=== PATIENT | male | born 1965 | race Hispanic/Latino ===

== ENCOUNTER 2018-02-13 11:54 | Inpatient (IN) | payer OTHER ==
[2018-02-13] MEDS ORDERED: MORPHINE IV ONE ×3 (12:22→14:36)
[2018-02-13] MEDS ORDERED: NACL 0.9% 1000 ML 1,000 ML IV ONE (12:24)
--- NOTE | 2018-02-13 12:29 | Emergency Department Report ---
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 He denies hitting his head or any loss of consciousness. He presents with his left leg slightly shortened and rotated. He received 100 g of fentanyl and 4 mg of Zofran in route with EMS. He is a tobacco smoker. He denies any past medical history. He does not have a primary care physician. ED Past Medical Hx - Medications Home Medications: Home Medications Medication Instructions Recorded Confirmed Last Taken Type No Known Home Medications [No 02/13/18 02/13/18 Unknown History Reported Home Medications] ED Review of Systems ROS: Stated complaint: LEFT HIP PAIN Other details as noted in HPI Comment: All other systems reviewed and negative Constitutional: denies: chills, fever Eyes: denies: eye pain, eye discharge, vision change ENT: denies: ear pain, throat pain Respiratory: denies: cough, shortness of breath, wheezing Cardiovascular: denies: chest pain, palpitations Gastrointestinal: denies: abdominal pain, nausea, diarrhea Genitourinary: denies: urgency, dysuria Musculoskeletal: arthralgia. denies: back pain Skin: denies: rash, lesions Neurological: denies: headache, weakness, paresthesias Physical Exam - Physical Exam Physical Exam: GENERAL: The patient is well-developed well-nourished. HENT: Normocephalic. Atraumatic. Patient has moist mucous membranes. EYES: Extraocular motions are intact. Pupils equal reactive to light bilaterally. NECK: Supple. Trachea is midline. CHEST/LUNGS: Clear to auscultation. There is no respiratory distress noted. HEART/CARDIOVASCULAR: Regular. There is no tachycardia. There is no murmur. ABDOMEN: Abdomen is soft, nontender. Patient has normal bowel sounds. There is no abdominal distention. SKIN: Skin is warm and dry. NEURO: The patient is awake, alert, and oriented. The patient is cooperative. The patient has no focal neurologic deficits. The patient has normal speech. MUSCULOSKELETAL: Patient has tenderness palpation to the left hip and upper thigh. The left lower extremity is slightly shortened and externally rotated compared to the right leg. Decreased range of motion of the left lower externally secondary to pain. Pedal pulses are intact. ED Medical Decision Making - Lab Data Result diagrams: 02/13/18 13:06 02/13/18 13:06 - Radiology Data Radiology results: image reviewed interpreted by me: X-ray shows a comminuted left proximal femoral fracture. - Medical Decision Making Patient fell directly on his left side and/or hip and presents with hip pain. He has a comminuted proximal left femoral fracture. Dr. Verdugo consulted for orthopedics who will take the patient to the operating room tomorrow for fixation and the patient will be admitted to the hospitalist service and accepted by Dr. Acuna. - Differential Diagnosis fracture, contusion, sprain, strain Critical Care Time: No Critical care attestation.: If time is entered above; I have spent that time in minutes in the direct care of this critically ill patient, excluding procedure time. ED Disposition Clinical Impression: Hyperglycemia Comminuted fracture of left hip Qualifiers: Encounter type: initial encounter Fracture type: closed Qualified Code(s): S72.092A - Other fracture of head and neck of left femur, initial encounter for closed fracture Hypertension Qualifiers: Hypertension type: essential hypertension Qualified Code(s): I10 - Essential ( primary) hypertension Disposition: 09 OP ADMIT IP TO THIS HOSP Is pt being admited?: Yes Condition: Stable Time of Disposition: 14:32
--- NOTE | 2018-02-13 13:17 | History and Physical Report ---
History of Present Illness Chief complaint: I fell on my left side and hurt myself History of present illness: 53 YO Male with Obesity, Nicotine Dependence presents to ED for evaluation. 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 Pt states that he was unable to stand up and bear weight on his left leg. Pt states that pain is 10/10, worse with movement, and relieved somewhat with non movement. Pt denies head trauma, loss of consciousness, CP, Palpitations, NVD, shortness of breath, BRBPR, . He presents with his left leg slightly shortened and rotated. He received 100 g of fentanyl and 4 mg of Zofran in route with EMS. He is a tobacco smoker. He denies any past medical history. He does not have a primary care physician. Medications and Allergies Allergies Allergy/AdvReac Type Severity Reaction Status Date / Time No Known Allergies Allergy Unverified 02/13/18 12:50 Home Medications Medication Instructions Recorded Confirmed Last Taken Type No Known Home Medications [No 02/13/18 02/13/18 Unknown History Reported Home Medications] Active Meds: Active Medications Sodium Chloride (Nacl 0.9% 1000 Ml) 1,000 mls @ 250 mls/hr IV ONCE ONE Stop: 02/13/18 16:23 Last Admin: 02/13/18 12:51 Dose: 250 mls/hr Review of Systems Constitutional: no weight loss, no weight gain, no fever, no chills Ears, nose, mouth and throat: no ear pain, no ear discharge, no tinnitis, no decreased hearing, no nose pain Cardiovascular: no chest pain, no orthopnea, no palpitations, no rapid/ irregular heart beat, no edema, no syncope, no lightheadedness, no shortness of breath Respiratory: no cough, no cough with sputum, no excessive sputum, no hemoptysis , no shortness of breath, no dyspnea on exertion Gastrointestinal: no abdominal pain, no nausea, no vomiting, no diarrhea, no constipation, no change in bowel habits, no hematemesis Genitourinary Male: no dysuria, no hematuria, no flank pain, no discharge, no urinary frequency, no urinary hesitancy, no nocturia, no incontinence, no erectile dysfunction Rectal: no pain, no incontinence, no bleeding Musculoskeletal: other (left hip pain), no neck stiffness, no neck pain, no shooting arm pain, no arm numbness/tingling, no low back pain Integumentary: no rash, no pruritis, no redness, no sores, no wounds, no jaundice Neurological: no head injury, no transient paralysis, no paralysis, no weakness , no parathesias, no numbness, no tingling Psychiatric: no anxiety, no memory loss, no change in sleep habits, no sleep disturbances, no insomnia, no hypersomnia, no change in appetite Endocrine: no cold intolerance, no heat intolerance, no polyphagia, no excessive thirst, no polydipsia, no polyuria, no nocturia Hematologic/Lymphatic: no easy bruising, no easy bleeding, no lymphadenopathy, no lymphedema Allergic/Immunologic: no urticaria, no allergic rhinitis, no wheezing, no persistent infections, no anaphylaxis, no angioedema Exam - Constitutional Vitals: Temp Pulse Resp BP Pulse Ox 98.2 F 68 12 135/95 100 02/13/18 12:43 02/13/18 12:43 02/13/18 12:51 02/13/18 12:43 02/13/18 12:43 General appearance: Present: mild distress - EENT Eyes: Present: PERRL ENT: hearing intact, clear oral mucosa - Neck Neck: Present: supple, normal ROM - Respiratory Respiratory effort: normal Respiratory: bilateral: CTA - Cardiovascular Heart Sounds: Present: S1 & S2. Absent: rub, click - Extremities Extremities: pulses symmetrical, No edema Extremity abnormal: other (LLE externally rotated, pain with palpation and movement. ) Peripheral Pulses: abnormal (capillary refill greater than 3.6 seconds) - Abdominal General gastrointestinal: Present: soft, non-tender, non-distended, normal bowel sounds Male genitourinary: Present: normal - Rectal Rectal Exam: normal exam-external/orifice - Integumentary Integumentary: Present: clear, warm, dry - Musculoskeletal Musculoskeletal: gait normal, strength equal bilaterally - Psychiatric Psychiatric: appropriate mood/affect, intact judgment & insight - Neurologic Neurologic: CNII-XII intact, moves all extremities Results - Labs CBC & Chem 7: 02/13/18 13:06 02/13/18 13:06 Assessment and Plan - Patient Problems (1) Sepsis Current Visit: Yes Status: Acute Qualifiers: Sepsis type: sepsis due to unspecified organism Qualified Code(s): A41.9 - Sepsis, unspecified organism Plan to address problem: Iv antibiotics, blood cultures, chest x ray, urinalysis, monitor uop q shift, serial lactic acid, CBC, BMP,urinalysis, chest x ray, CT angio chest (2) Hypertensive urgency, malignant Current Visit: Yes Status: Acute Plan to address problem: monitor bp q shift, IV hydralazine prn for systolic above 160 (3) Nicotine dependence Current Visit: Yes Status: Acute Qualifiers: Substance use status: in withdrawal Plan to address problem: smoking cessation counseling, Pt refused to pick quit date. (4) Comminuted fracture of left hip Current Visit: Yes Status: Acute Qualifiers: Encounter type: initial encounter Fracture type: closed Qualified Code(s) : S72.092A - Other fracture of head and neck of left femur, initial encounter for closed fracture Plan to address problem: Ortho consulted, pending surgical intervention in AM, pain control, (5) DVT prophylaxis Current Visit: Yes Status: Acute
[2018-02-13] MEDS ORDERED: ZOFRAN IV PRN (13:18)
[2018-02-13] MEDS ORDERED: SODIUM CHLORIDE FLUSH SYRINGE 10 ML IV PRN (13:18)
[2018-02-13] MEDS ORDERED: TYLENOL PO PRN (13:18)
--- NOTE | 2018-02-13 13:26 | XRay Report ---
LEFT HIP, 2 views: History: Pain, fall. A comminuted intertrochanteric fracture is identified in the proximal left femur. The left femoral head remains well-seated within the left acetabulum. No obvious pelvic fracture. IMPRESSION: Comminuted intertrochanteric fracture of the proximal left femur.
[2018-02-13 13:32] LABS: Hematocrit 46.7 % (35.5-45.6); Hemoglobin 15.6 gm/dl (11.8-15.2); Mean Corpuscular HGB Conc 34 % (32-34); Mean Corpuscular Hemoglobin 30 pg (28-32); Mean Corpuscular Volume 90 fl (84-94); Platelet Count 249 K/mm3 (140-440); Red Blood Count 5.21 M/mm3 (3.65-5.03); Red Cell Distribution Width 13.3 % (13.2-15.2)
[2018-02-13 13:38] LABS: BUN/Creatinine Ratio 15; Blood Urea Nitrogen 12 mg/dL (9-20); Calcium 8.5 mg/dL (8.4-10.2); Hemolysis Index 41
[2018-02-13 13:41] LABS: INR 0.87 (0.87-1.13); Partial Thromboplastin Time 25.7 Sec. (24.2-36.6)
[2018-02-13] MEDS ORDERED: MORPHINE IV NR (14:39)
[2018-02-13 14:54] LABS: Anisocytosis 1+; Basophils % (Manual) 0 % (0.0-1.8); Eosinophils % (Manual) 1.5 % (0.0-4.3); Monocytes % (Manual) 3.5 % (0.0-7.3); Platelet Estimate Consistent w Auto; Total Cells Counted 200
[2018-02-13] MEDS ORDERED: NACL 0.9% 1000 ML IV ONE (16:48)
[2018-02-13] MEDS ORDERED: APRESOLINE IV PRN (16:52)
[2018-02-13] MEDS ORDERED: MORPHINE IV PRN ×2 (19:06→19:17)
[2018-02-13] MEDS: ZOSYN/NS 4.5GM/100ML 4.5 GM/100 ML VIAL IV SCH (19:11)
--- NOTE | 2018-02-13 19:15 | XRay Report ---
FINAL REPORT EXAM: XR CHEST 1V AP HISTORY: dypsnea TECHNIQUE: upright single view chest PRIORS: None. FINDINGS: Cardiac and mediastinal contours are unremarkable. No focal pulmonary infiltrate is identified. No pleural fluid collection seen. Pulmonary vasculature is unremarkable. IMPRESSION: Negative single-view chest
[2018-02-13] MEDS ORDERED: AMBIEN PO PRN (21:21)
[2018-02-13] MEDS: HABITROL TD SCH (22:56)
[2018-02-14] MEDS: MORPHINE IV PRN ×4 (00:31→21:43)
[2018-02-14] MEDS: PERCOCET 5/325 PO PRN (02:21)
[2018-02-14] MEDS: ZOSYN/NS 4.5GM/100ML 4.5 GM/100 ML VIAL IV SCH ×4 (02:24→21:42)
--- NOTE | 2018-02-14 03:01 | Cat Scan Report ---
FINAL REPORT EXAM: CT ANGIO CHEST HISTORY: Dyspnea. TECHNIQUE: CT angiogram of the chest was performed, with axial images obtained after the intravenous administration of contrast. Sagittal, coronal, and spiral CT-MIP reformatted images were also obtained. No prior studies are available for comparison. FINDINGS: The heart is mildly enlarged. The thoracic aorta is normal in caliber, without aneurysm or dissection. There is small intraluminal filling defect seen within pulmonary arterial branch extending to the posterior left lower lobe (series 3, images 58-60), in keeping with nonocclusive pulmonary embolus. There is probable additional tiny nonocclusive clot in the right lower lobe pulmonary arterial branch (images 60-61). There is no mediastinal or hilar lymphadenopathy. Examination of the lung parenchyma demonstrates multiple foci of moderate linear scarring or atelectasis in both posterior lower lobes. There is additional mild linear scarring or atelectasis in the anterior-upper aspect of the right middle lobe and also at the anterior right lung apex. There is no pleural or pericardial effusion. The trachea and visualized proximal airways are patent. There is diffuse fatty infiltration of the liver. There is an exophytic 2.1 cm cyst at the anterior left renal upper pole. There is mild diffuse thickening of the left adrenal gland, with a 1.2 cm nodule seen anteriorly. There are moderate spondylotic and degenerative changes seen throughout the spine. There is a mild thoracic levoscoliosis. These findings were discussed with Nurse Sandeep Estrada at time of interpretation 2:55 a.m. EST 02/14/2018. IMPRESSION: 1. Small nonocclusive pulmonary emboli seen within pulmonary arterial branches in the left lower lobe and right lower lobe. 2. Scattered foci of linear scarring or atelectasis within both lungs. 3. Diffuse thickening of left adrenal gland, with nonspecific 1.2 cm nodule seen anteriorly, not fully characterized. 4. Diffuse fatty infiltration of the liver.
[2018-02-14] MEDS ORDERED: LOVENOX SUB-Q ONE (03:03)
[2018-02-14] MEDS: SODIUM CHLORIDE FLUSH SYRINGE 10 ML IV SCH ×3 (03:08→22:15)
[2018-02-14 06:34] LABS: Bilirubin,Urine NEG (Negative); Blood,Urine NEG (Negative); Color,Urine Yellow (Yellow); Protein,Urine <15 mg/dL mg/dL (Negative); Urobilinogen,Urine < 2.0 mg/dL (<2.0); WBC,Urine < 1.0 /HPF (0.0-6.0)
[2018-02-14] MEDS ORDERED: NACL 0.9% 1000 ML 1,000 ML ONE (08:51)
[2018-02-14] MEDS ORDERED: ATROVENT IH ONE ×2 (08:53→09:30)
--- NOTE | 2018-02-14 08:57 | Anesthesia Consultation ---
Anesthesia Consult and Med Hx Date of service: 02/14/18 - Airway Anesthetic Teeth Evaluation: Edentulous ROM Head & Neck: Adequate Mental/Hyoid Distance: Inadequate Mallampati Class: Class III Intubation Access Assessment: Possibly Difficult - Pulmonary Exam CTA: Yes - Cardiac Exam Cardiac Exam: RRR - Pre-Operative Health Status ASA Pre-Surgery Classification: ASA3 Proposed Anesthetic Plan: General - Pulmonary Hx Smoking: Yes Hx Asthma: No SOB: Yes (small PE on CT scan) COPD: No Hx Pneumonia: No Hx Sleep Apnea: Yes (high risk. denies) - Cardiovascular System Hx Hypertension: Yes (denies but hypertensive on admission) Hx Heart Attack/AMI: No Hx Pacemaker: No Hx Internal Defibrillator: No - Central Nervous System Hx Seizures: No - Endocrine Hx Renal Disease: No Hx Liver Disease: No Hx Non-Insulin Dependent Diabetes: Yes (denies but hyperglycemic on admission) - Hematic Hx Sickle Cell Disease: No - Other Systems Hx Obesity: Yes - Additional Comments Anesthesia Medical History Comments: small non obstructive PE on CT scan
--- NOTE | 2018-02-14 08:57 | Anesthesia Day of Surgery ---
Anesthesia Day of Surgery - Day of Surgery Patient Examined: Yes Patient H&P Reviewed: Yes Patient is NPO: Yes
[2018-02-14] MEDS ORDERED: APRESOLINE IV PRN (09:14)
--- NOTE | 2018-02-14 09:22 | Event Note ---
Date: 02/14/[address] Tyson. 53 year old male with left hip comminuted fracture with pulmonary emboli in the lower lobe pulmonary arteries with request for IVC filter. I'll order a KUB to ensure there is no IVC filter in place. If no IVC filter, then I will add the patient on today for IVC filter. Plan will be for IVC filter removal within 3 months. Recommend bilateral lower extremity DVT studies to evaluate source. Suspect left lower extremity. Recommend anticoagulation for 3 months once risks of bleeding have decreased.
[2018-02-14] MEDS: PROVENTIL IH PRN (09:27)
[2018-02-14] MEDS ORDERED: HEPARIN/NS 5000 UNIT/500ML(CATH LAB) 1,000 ML IR ONE (14:25)
[2018-02-14] MEDS ORDERED: NACL 0.9% 500 ML 500 ML ONE (14:26)
[2018-02-14] MEDS ORDERED: ANCEF/STERILE WATER 2 GM/20 ML 0 GM/0 ML SYRINGE IV ONE (14:29)
[2018-02-14] MEDS ORDERED: XYLOCAINE 1% 20 mL ONE (14:29)
[2018-02-14] MEDS: SUBLIMAZE ONE ×3 (14:33→15:13)
--- NOTE | 2018-02-14 14:36 | Consultation ---
History of Present Illness - HPI Consult date: 02/14/18 Consult reason: fracture History of present illness: 53 YO Male with Obesity, Nicotine Dependence presents to ED for evaluation. 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 Pt states that he was unable to stand up and bear weight on his left leg. Pt states that pain is 10/10, worse with movement, and relieved somewhat with non movement. Pt denies head trauma, loss of consciousness Seen in the ED where xrays taken revealed a displaced left intertrochanteric fracture hip, admitted and orthopedics consulted.... Medications and Allergies Allergies Allergy/AdvReac Type Severity Reaction Status Date / Time No Known Allergies Allergy Unverified 02/13/18 12:50 Home Medications Medication Instructions Recorded Confirmed Last Taken Type No Known Home Medications [No 02/13/18 02/13/18 Unknown History Reported Home Medications] Active Meds: Active Medications Acetaminophen (Tylenol) 650 mg PO Q4H PRN PRN Reason: Pain MILD(1-3)/Fever >100.5/POMPA Albuterol (Proventil) 2.5 mg IH Q4HRT PRN PRN Reason: Shortness Of Breath Last Admin: 02/14/18 09:27 Dose: 2.5 mg Albuterol (Proventil) 2.5 mg IH TIDRT [facility] Folic Acid (Folvite) 1 mg PO QDAY [facility] Hydralazine HCl (Apresoline) 10 mg IV Q4HR PRN PRN Reason: Hypertension Piperacillin Sod/Tazobactam Sod (Zosyn/Ns 4.5gm/100ml) 4.5 gm in 100 mls @ 200 mls/hr IV Q8HR [facility]; Protocol Last Admin: 02/14/18 05:21 Dose: 200 mls/hr Morphine Sulfate (Morphine) 2 mg IV Q6H PRN PRN Reason: Pain , Severe (7-10) Last Admin: 02/14/18 12:29 Dose: 2 mg Multivitamins (Theragran Tab) 1 each PO QDAY [facility] Nicotine (Habitrol) 7 mg TD QDAY@2200 DESHAWN Last Admin: 02/13/18 22:56 Dose: 7 mg Ondansetron HCl (Zofran) 4 mg IV Q8H PRN PRN Reason: Nausea And Vomiting Oxycodone/Acetaminophen (Percocet 5/325) 1 tab PO Q6H PRN PRN Reason: Pain, Moderate (4-6) Last Admin: 02/14/18 02:21 Dose: 1 tab Sodium Chloride (Sodium Chloride Flush Syringe 10 Ml) 10 ml IV BID DESHAWN Last Admin: 02/14/18 12:31 Dose: 10 ml Sodium Chloride (Sodium Chloride Flush Syringe 10 Ml) 10 ml IV PRN PRN PRN Reason: LINE FLUSH Thiamine HCl (Vitamin B-1) 100 mg PO QDAY [facility] Zolpidem Tartrate (Ambien) 10 mg PO QHS PRN PRN Reason: Insomnia Last Admin: 02/13/18 22:56 Dose: 10 mg Physical Examination - Physical exam Narrative exam: Left LE - moderate swelling left proximal thigh, tender with passive ROM, shortened externallly rotated, compartments soft, good capillary refill Assessment and Plan Displaced left intertrochanteric hip fracture Recommend IM nailing left hip....
--- NOTE | 2018-02-14 14:43 | XRay Report ---
AP ABDOMEN: HISTORY: Evaluate for IVC filter, pulmonary emboli. Slightly limited exam with poor penetration secondary to body habitus. No IVC filter is detected on x-ray. The abdominal gas pattern is unremarkable. No masses or organomegaly is identified and there is no gross evidence of free air or fluid. No significant soft tissue calcifications are noted. IMPRESSION: Unremarkable abdomen. No IVC filter is identified on x-ray.
[2018-02-14] MEDS ORDERED: XYLOCAINE 2% INFILTRATI ONE (14:48)
[2018-02-14] MEDS: PROVENTIL IH SCH ×2 (14:53→20:58)
[2018-02-14] MEDS: VERSED IV ONE ×2 (14:57→15:13)
--- NOTE | 2018-02-14 15:56 | Operative Report ---
Operative Report Operative Report: EXAM: Ultrasound guided access of the right common femoral vein IVC filter placement and inferior venacava venography DATE: 02/14/18 INDICATION: 53-year-old male with comminuted left lower extremity fracture found to have pulmonary embolism with request for IVC filter. MEDICATIONS: Continuous cardiopulmonary monitoring was performed during this procedure. Please review the nursing record for a list of all medications. DEVICES: Retrievable Bard Montgomery IVC filter. [employer]: WALT GUDINO MD CONTRAST: 40 mL of nonionic contrast PROCEDURE: The risks, benefits, and alternatives were discussed; written informed consent was obtained. The patient was transported to the angiography suite in stable condition. The patient was transported on the table and the right common femoral vein was assessed with ultrasound to ensure patency. The patient was prepped and draped in a sterile fashion. The right common femoral vein was accessed with an 21-gauge needle under direct ultrasound guidance. 0.018 inch wire was advanced through the needle and the needle was exchanged for a transitional dilation. Inner dilator and wire was removed. 0.035 inch wire was passed into the inferior vena cava. The transitional dilator was exchanged for a 5 Dominican sheath and a 5 Dominican pigtail catheter was advanced over the wire and passed into the inferior vena cava. The table was locked. Digital subtraction venography was performed. The pigtail was removed over a 0.035 inch wire and the sheath was removed over the wire. The IVC filter sheath and introducer were advanced over the wire under direct fluoroscopic guidance. The wire and introducer were removed. The IVC filter deployment system was advanced through the sheath and properly positioned under fluoroscopic guidance. The IVC filter was deployed under direct fluoroscopic guidance. Venography was performed through the sheath to confirm position. The deployment system, and sheath were removed. Pressure was held until hemostasis was achieved. The patient was transferred from the angiography suite in stable condition. FINDINGS: 1. Under direct ultrasound guidance, the right right common femoral vein was accessed with a 21-gauge needle. The right common femoral vein is patent. 2. Digital subtraction venography of the inferior vena cava demonstrates no evidence of inferior vena cava thrombus. The inferior vena cava is normal in size. Renal vein inflow is visualized. The inferior vena cava is adequate to accommodate an IVC filter. 3. Bard Montgomery IVC filter is properly positioned, below the renal veins and above the iliocaval confluence. IMPRESSION: Successful placement of a retrievable Bard Corrie IVC filter. No evidence of caval thrombus.
--- NOTE | 2018-02-14 17:55 | Progress Note ---
Assessment and Plan Assessment and plan: 53 YO Male with Obesity, Nicotine Dependence presents to ED for evaluation. 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 Pt states that he was unable to stand up and bear weight on his left leg. Pt states that pain is 10/10, worse with movement, and relieved somewhat with non movement. Pt denies head trauma, loss of consciousness, CP, Palpitations, NVD, shortness of breath, BRBPR, . He presents with his left leg slightly shortened and rotated. He received 100 g of fentanyl and 4 mg of Zofran in route with EMS. He is a tobacco smoker. He denies any past medical history. He does not have a primary care physician. (1) SIRS, no clear evidence of sepsis Current Visit: Yes Status: Acute Qualifiers: Sepsis type: sepsis due to unspecified organism Qualified Code(s): A41.9 - Sepsis, unspecified organism Plan to address problem: Iv antibiotics, blood cultures, chest x ray, urinalysis, monitor uop q shift, serial lactic acid, CBC, BMP,urinalysis, chest x ray, CT angio chest (2) Pulmonary Embolisim Hold anticoagulation due to planned surgery Will pLACE ICD VASULAR CONSULT (3) Hypertensive urgency, malignant Current Visit: Yes Status: Acute Plan to address problem: monitor bp q shift, IV hydralazine prn for systolic above 160 (4) Nicotine dependence Current Visit: Yes Status: Acute Qualifiers: Substance use status: in withdrawal Plan to address problem: smoking cessation counseling, Pt refused to pick quit date. (5) Comminuted fracture of left hip Current Visit: Yes Status: Acute Qualifiers: Encounter type: initial encounter Fracture type: closed Qualified Code(s) : S72.092A - Other fracture of head and neck of left femur, initial encounter for closed fracture Plan to address problem: Ortho consulted, pending surgical intervention in AM, pain control, (6) DVT prophylaxis Current Visit: Yes Status: Acute History Interval history: Patient seen and examined in no acute distress. He just returned from IVC filter placement after discussion with Anesthesia, vascular, and reviewing patients risk agreed that IVC filter will be ideal before surgery. Patient and family were ok. Hospitalist Physical - Physical exam Narrative exam: General appearance: Present: mild distress - EENT Eyes: Present: PERRL ENT: hearing intact, clear oral mucosa - Neck Neck: Present: supple, normal ROM - Respiratory Respiratory effort: normal Respiratory: bilateral: CTA - Cardiovascular Heart Sounds: Present: S1 & S2. Absent: rub, click - Extremities Extremities: pulses symmetrical, No edema Extremity abnormal: other (LLE externally rotated, pain with palpation and movement. ) Peripheral Pulses: abnormal (capillary refill greater than 3.6 seconds) - Abdominal General gastrointestinal: Present: soft, non-tender, non-distended, normal bowel sounds Male genitourinary: Present: normal - Rectal Rectal Exam: normal exam-external/orifice - Integumentary Integumentary: Present: clear, warm, dry - Musculoskeletal Musculoskeletal: gait normal, strength equal bilaterally - Psychiatric Psychiatric: appropriate mood/affect, intact judgment & insight - Neurologic Neurologic: CNII-XII intact, moves all extremities - Constitutional Vitals: Temp Pulse Resp BP Pulse Ox 97.4 F L 103 H 17 159/93 91 02/14/18 13:56 02/14/18 13:56 02/14/18 13:56 02/14/18 13:56 02/14/18 13:56 General appearance: Present: mild distress Results - Labs CBC & Chem 7: 02/13/18 13:06 02/13/18 13:06 Labs: Laboratory Last Values WBC 21.4 K/mm3 (4.5-11.0) H 02/13/18 13:06 RBC 5.21 M/mm3 (3.65-5.03) H 02/13/18 13:06 Hgb 15.6 gm/dl (11.8-15.2) H 02/13/18 13:06 Hct 46.7 % (35.5-45.6) H 02/13/18 13:06 MCV 90 fl (84-94) 02/13/18 13:06 MCH 30 pg (28-32) 02/13/18 13:06 MCHC 34 % (32-34) 02/13/18 13:06 RDW 13.3 % (13.2-15.2) 02/13/18 13:06 Plt Count 249 K/mm3 (140-440) 02/13/18 13:06 Add Manual Diff Complete 02/13/18 13:06 Total Counted 200 02/13/18 13:06 Seg Neuts % (Manual) 90.0 % (40.0-70.0) H 02/13/18 13:06 Band Neutrophils % 0 % 02/13/18 13:06 Lymphocytes % (Manual) 5.0 % (13.4-35.0) L 02/13/18 13:06 Reactive Lymphs % (Man) 0 % 02/13/18 13:06 Monocytes % (Manual) 3.5 % (0.0-7.3) 02/13/18 13:06 Eosinophils % (Manual) 1.5 % (0.0-4.3) 02/13/18 13:06 Basophils % (Manual) 0 % (0.0-1.8) 02/13/18 13:06 Metamyelocytes % 0 % 02/13/18 13:06 Myelocytes % 0 % 02/13/18 13:06 Promyelocytes % 0 % 02/13/18 13:06 Blast Cells % 0 % 02/13/18 13:06 Nucleated RBC % Not Reportable 02/13/18 13:06 Seg Neutrophils # Man 19.3 K/mm3 (1.8-7.7) H 02/13/18 13:06 Band Neutrophils # 0.0 K/mm3 02/13/18 13:06 Lymphocytes # (Manual) 1.1 K/mm3 (1.2-5.4) L 02/13/18 13:06 Abs React Lymphs (Man) 0.0 K/mm3 02/13/18 13:06 Monocytes # (Manual) 0.7 K/mm3 (0.0-0.8) 02/13/18 13:06 Eosinophils # (Manual) 0.3 K/mm3 (0.0-0.4) 02/13/18 13:06 Basophils # (Manual) 0.0 K/mm3 (0.0-0.1) 02/13/18 13:06 Metamyelocytes # 0.0 K/mm3 02/13/18 13:06 Myelocytes # 0.0 K/mm3 02/13/18 13:06 Promyelocytes # 0.0 K/mm3 02/13/18 13:06 Blast Cells # 0.0 K/mm3 02/13/18 13:06 WBC Morphology Not Reportable 02/13/18 13:06 Hypersegmented Neuts Not Reportable 02/13/18 13:06 Hyposegmented Neuts Not Reportable 02/13/18 13:06 Hypogranular Neuts Not Reportable 02/13/18 13:06 Smudge Cells Not Reportable 02/13/18 13:06 Toxic Granulation Not Reportable 02/13/18 13:06 Toxic Vacuolation Not Reportable 02/13/18 13:06 Dohle Bodies Not Reportable 02/13/18 13:06 Pelger-Huet Anomaly Not Reportable 02/13/18 13:06 Sophia Rods Not Reportable 02/13/18 13:06 Platelet Estimate Consistent w auto 02/13/18 13:06 Clumped Platelets Not Reportable 02/13/18 13:06 Plt Clumps, EDTA Not Reportable 02/13/18 13:06 Large Platelets Not Reportable 02/13/18 13:06 Giant Platelets Not Reportable 02/13/18 13:06 Platelet Satelliting Not Reportable 02/13/18 13:06 Plt Morphology Comment Not Reportable 02/13/18 13:06 RBC Morphology Not Reportable 02/13/18 13:06 Dimorphic RBCs Not Reportable 02/13/18 13:06 Polychromasia Not Reportable 02/13/18 13:06 Hypochromasia Not Reportable 02/13/18 13:06 Poikilocytosis Not Reportable 02/13/18 13:06 Anisocytosis 1+ 02/13/18 13:06 Microcytosis Not Reportable 02/13/18 13:06 Macrocytosis Not Reportable 02/13/18 13:06 Spherocytes Not Reportable 02/13/18 13:06 Pappenheimer Bodies Not Reportable 02/13/18 13:06 Sickle Cells Not Reportable 02/13/18 13:06 Target Cells Not Reportable 02/13/18 13:06 Tear Drop Cells Not Reportable 02/13/18 13:06 Ovalocytes Not Reportable 02/13/18 13:06 Helmet Cells Not Reportable 02/13/18 13:06 [place] Bodies Not Reportable 02/13/18 13:06 [place] Rings Not Reportable 02/13/18 13:06 [place] Cells Not Reportable 02/13/18 13:06 Bite Cells Not Reportable 02/13/18 13:06 Crenated Cell Not Reportable 02/13/18 13:06 Elliptocytes Not Reportable 02/13/18 13:06 Acanthocytes (Spur) Not Reportable 02/13/18 13:06 Rouleaux Not Reportable 02/13/18 13:06 Hemoglobin C Crystals Not Reportable 02/13/18 13:06 Schistocytes Not Reportable 02/13/18 13:06 Malaria parasites Not Reportable 02/13/18 13:06 Ernst Bodies Not Reportable 02/13/18 13:06 Hem Pathologist Commnt No 02/13/18 13:06 PT 12.2 Sec. (12.2-14.9) 02/13/18 13:06 INR 0.87 (0.87-1.13) 02/13/18 13:06 APTT 25.7 Sec. (24.2-36.6) 02/13/18 13:06 Sodium 132 mmol/L (137-145) L 02/13/18 13:06 Potassium 4.6 mmol/L (3.6-5.0) 02/13/18 13:06 Chloride 92.9 mmol/L (98-107) L 02/13/18 13:06 Carbon Dioxide 26 mmol/L (22-30) 02/13/18 13:06 Anion Gap 18 mmol/L 02/13/18 13:06 BUN 12 mg/dL (9-20) 02/13/18 13:06 Creatinine 0.8 mg/dL (0.8-1.5) 02/13/18 13:06 Estimated GFR > 60 ml/min 02/13/18 13:06 BUN/Creatinine Ratio 15 % 02/13/18 13:06 Glucose 319 mg/dL (75-100) H 02/13/18 13:06 POC Glucose 215 (70-105) H 02/14/18 13:52 Lactic Acid 1.20 mmol/L (0.7-2.0) 02/13/18 22:53 Calcium 8.5 mg/dL (8.4-10.2) 02/13/18 13:06 Urine Color Yellow (Yellow) 02/14/18 05:45 Urine Turbidity Clear (Clear) 02/14/18 05:45 Urine pH 5.0 (5.0-7.0) 02/14/18 05:45 Ur Specific [place] > 1.035 (1.003-1.030) H 02/14/18 05:45 Urine Protein <15 mg/dl mg/dL (Negative) 02/14/18 05:45 Urine Glucose (UA) >=500 mg/dL (Negative) 02/14/18 05:45 Urine Ketones Tr mg/dL (Negative) 02/14/18 05:45 Urine Blood Neg (Negative) 02/14/18 05:45 Urine Nitrite Neg (Negative) 02/14/18 05:45 Urine Bilirubin Neg (Negative) 02/14/18 05:45 Urine Urobilinogen < 2.0 mg/dL (<2.0) 02/14/18 05:45 Ur Leukocyte Esterase Neg (Negative) 02/14/18 05:45 Urine WBC (Auto) < 1.0 /HPF (0.0-6.0) 02/14/18 05:45 Urine RBC (Auto) 2.0 /HPF (0.0-6.0) 02/14/18 05:45 - Imaging and Cardiology CT scan - chest: image reviewed (pulmonary embolisim)
[2018-02-14] MEDS: HABITROL TD SCH (21:43)
[2018-02-15] MEDS: MORPHINE IV PRN (05:31)
[2018-02-15] MEDS: ZOSYN/NS 4.5GM/100ML 4.5 GM/100 ML VIAL IV SCH ×5 (05:31→23:12)
[2018-02-15] MEDS: PROVENTIL IH SCH ×2 (07:45→14:00)
[2018-02-15] MEDS: PERCOCET 5/325 PO PRN ×2 (09:11→23:09)
[2018-02-15] MEDS ORDERED: ZOFRAN IV PRN (10:19)
[2018-02-15] MEDS ORDERED: VERSED IV NR (11:00)
[2018-02-15] MEDS ORDERED: NACL 0.9% 1000 ML 1,000 ML IV SCH (11:00)
[2018-02-15] MEDS ORDERED: NEURONTIN PO NR (11:00)
[2018-02-15] MEDS: NACL 0.9% 1000 ML 1,000 ML IV SCH (11:50)
[2018-02-15] MEDS: FOLVITE PO SCH (12:10)
[2018-02-15] MEDS: SODIUM CHLORIDE FLUSH SYRINGE 10 ML IV SCH ×2 (12:11→23:00)
[2018-02-15] MEDS: VITAMIN B-1 PO SCH (12:11)
[2018-02-15] MEDS: THERAGRAN Tab PO SCH (12:11)
[2018-02-15] MEDS ORDERED: TORADOL IM ONE (12:14)
[2018-02-15] MEDS ORDERED: NACL 0.9% IR ONE (12:14)
[2018-02-15] MEDS ORDERED: MORPHINE IM ONE (12:14)
[2018-02-15] MEDS ORDERED: MARCAINE 0.5% INFILTRATI ONE (12:14)
[2018-02-15] MEDS ORDERED: DIPRIVAN 10 MG/ML IV ONE (12:18)
[2018-02-15] MEDS ORDERED: SUBLIMAZE ONE (12:20)
[2018-02-15] MEDS ORDERED: QUELICIN ONE (12:27)
[2018-02-15] MEDS ORDERED: NEO SYNEPHRINE/NS Syringe(OR USE) IV ONE (12:30)
[2018-02-15] MEDS ORDERED: XYLOCAINE MPF 2% ONE (12:32)
[2018-02-15] MEDS ORDERED: ZEMURON IV ONE (12:32)
[2018-02-15] MEDS ORDERED: TORADOL ONE (13:18)
[2018-02-15] MEDS ORDERED: MARCAINE 0.5% 30 ML INFILTRATI ONE (13:18)
[2018-02-15] MEDS ORDERED: MORPHINE ONE (13:18)
--- NOTE | 2018-02-15 14:51 | Procedure Note ---
Date of procedure: 02/15/18 Pre-op diagnosis: displaced left intertrochanteric hip fracture Post-op diagnosis: same Procedure: Close reduction insertion of intramedullary nail left femur Procedure The patient was brought to your place in the OR table in supine position following induction and intubation by anesthesia patient was placed onto the [place] fracture table care was taken to protect the bony areas the left lower extremity was placed a longitudinal traction next C-arm fluoroscopy was brought in the fracture was reduced in both the AP and lateral views next the left hip and thigh were prepped and draped in the usual sterile manner. A timeout procedure was done to identify the patient and the correct operative site. An incision was made superior and posterior to the greater trochanter lives are taken down sharply through skin and subcutaneous a Mosher elevator was used to split the soft tissues next using a digital palpation the greater tuberosity was palpated next a large all shoes to create an entry portal into the proximal femur following this and inferior C-arm fluoroscopy the titrated ball tipped guide was inserted down the proximal femur across the fracture site into the distal femoral condyle the length and diameters were measured A 10 x 480 mm IM andrea was selected following reaming the intramedullary nail was inserted using antegrade technique this is followed by proximal locking using a spiral blade which measured 110 mm in length this was followed by distal locking using a 50 mm 4.5 screw AP and lateral views were obtained showing good reduction of the fracture and placement of hardware next the wound copiously irrigated and were closed in a standard routine fashion. He tolerated the procedure there were no complications and he was sent to postanesthesia recovery Surgeon: DANTE FRAZIER Estimated blood loss: other (300 mL) Pathology: none Condition: stable Disposition: PACU
[2018-02-15] MEDS ORDERED: SODIUM CHLORIDE FLUSH SYRINGE 10 ML IV SCH (15:00)
[2018-02-15] MEDS ORDERED: ANCEF/NS 1 GM/50 ML 1 GM/50 ML BAG IV SCH (15:00)
[2018-02-15] MEDS: DILAUDID IV PRN ×2 (15:22→15:30)
[2018-02-15] MEDS: PROVENTIL IH PRN (16:40)
[2018-02-15] MEDS ORDERED: PROVENTIL IH SCH (17:00)
--- NOTE | 2018-02-15 17:43 | Progress Note ---
Assessment and Plan Assessment and plan: 53 YO Male with Obesity, Nicotine Dependence presents to ED for evaluation. 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 Pt states that he was unable to stand up and bear weight on his left leg. Pt states that pain is 10/10, worse with movement, and relieved somewhat with non movement. Pt denies head trauma, loss of consciousness, CP, Palpitations, NVD, shortness of breath, BRBPR, . He presents with his left leg slightly shortened and rotated. He received 100 g of fentanyl and 4 mg of Zofran in route with EMS. He is a tobacco smoker. He denies any past medical history. He does not have a primary care physician. (1) SIRS, no clear evidence of sepsis Current Visit: Yes Status: Acute Qualifiers: Sepsis type: sepsis due to unspecified organism Qualified Code(s): A41.9 - Sepsis, unspecified organism Plan to address problem: Iv antibiotics, blood cultures, chest x ray, urinalysis, monitor uop q shift, serial lactic acid, CBC, BMP,urinalysis, chest x ray, CT angio chest (2) Pulmonary Embolisim Hold anticoagulation due to planned surgery s/p IVC filter by vascular Start anticoagulation when ok with surgery (3) Hypertensive urgency, malignant Current Visit: Yes Status: Acute Plan to address problem: monitor bp q shift, IV hydralazine prn for systolic above 160 (4) Nicotine dependence Current Visit: Yes Status: Acute Qualifiers: Substance use status: in withdrawal Plan to address problem: smoking cessation counseling, Pt refused to pick quit date. (5) Comminuted fracture of left hip Current Visit: Yes Status: Acute Qualifiers: Encounter type: initial encounter Fracture type: closed Qualified Code(s) : S72.092A - Other fracture of head and neck of left femur, initial encounter for closed fracture Plan to address problem: s/p Close reduction insertion of intramedullary nail left femur PT/OT PAIN CONTROL INCENTIVE SPIROMETERY (6) DVT prophylaxis Current Visit: Yes Status: Acute History Interval history: Patient seen and examined in no acute distress. "I M Hungry" Hospitalist Physical - Physical exam Narrative exam: General appearance: Present: mild distress - EENT Eyes: Present: PERRL ENT: hearing intact, clear oral mucosa - Neck Neck: Present: supple, normal ROM - Respiratory Respiratory effort: normal Respiratory: bilateral: CTA - Cardiovascular Heart Sounds: Present: S1 & S2. Absent: rub, click - Extremities Extremities: pulses symmetrical, No edema Extremity abnormal: other (LLE externally rotated, pain with palpation and movement. ) Peripheral Pulses: abnormal (capillary refill greater than 3.6 seconds) - Abdominal General gastrointestinal: Present: soft, non-tender, non-distended, normal bowel sounds Male genitourinary: Present: normal - Rectal Rectal Exam: normal exam-external/orifice - Integumentary Integumentary: Present: clear, warm, dry - Musculoskeletal Musculoskeletal: gait normal, strength equal bilaterally - Psychiatric Psychiatric: appropriate mood/affect, intact judgment & insight - Neurologic Neurologic: CNII-XII intact, moves all extremities - Constitutional Vitals: Temp Pulse Resp BP Pulse Ox 98.7 F 120 H 22 123/89 90 02/15/18 16:56 02/15/18 16:56 02/15/18 16:56 02/15/18 16:56 02/15/18 16:56 General appearance: Present: mild distress Results - Labs CBC & Chem 7: 02/13/18 13:06 02/13/18 13:06 Labs: Laboratory Last Values WBC 21.4 K/mm3 (4.5-11.0) H 02/13/18 13:06 RBC 5.21 M/mm3 (3.65-5.03) H 02/13/18 13:06 Hgb 15.6 gm/dl (11.8-15.2) H 02/13/18 13:06 Hct 46.7 % (35.5-45.6) H 02/13/18 13:06 MCV 90 fl (84-94) 02/13/18 13:06 MCH 30 pg (28-32) 02/13/18 13:06 MCHC 34 % (32-34) 02/13/18 13:06 RDW 13.3 % (13.2-15.2) 02/13/18 13:06 Plt Count 249 K/mm3 (140-440) 02/13/18 13:06 Add Manual Diff Complete 02/13/18 13:06 Total Counted 200 02/13/18 13:06 Seg Neuts % (Manual) 90.0 % (40.0-70.0) H 02/13/18 13:06 Band Neutrophils % 0 % 02/13/18 13:06 Lymphocytes % (Manual) 5.0 % (13.4-35.0) L 02/13/18 13:06 Reactive Lymphs % (Man) 0 % 02/13/18 13:06 Monocytes % (Manual) 3.5 % (0.0-7.3) 02/13/18 13:06 Eosinophils % (Manual) 1.5 % (0.0-4.3) 02/13/18 13:06 Basophils % (Manual) 0 % (0.0-1.8) 02/13/18 13:06 Metamyelocytes % 0 % 02/13/18 13:06 Myelocytes % 0 % 02/13/18 13:06 Promyelocytes % 0 % 02/13/18 13:06 Blast Cells % 0 % 02/13/18 13:06 Nucleated RBC % Not Reportable 02/13/18 13:06 Seg Neutrophils # Man 19.3 K/mm3 (1.8-7.7) H 02/13/18 13:06 Band Neutrophils # 0.0 K/mm3 02/13/18 13:06 Lymphocytes # (Manual) 1.1 K/mm3 (1.2-5.4) L 02/13/18 13:06 Abs React Lymphs (Man) 0.0 K/mm3 02/13/18 13:06 Monocytes # (Manual) 0.7 K/mm3 (0.0-0.8) 02/13/18 13:06 Eosinophils # (Manual) 0.3 K/mm3 (0.0-0.4) 02/13/18 13:06 Basophils # (Manual) 0.0 K/mm3 (0.0-0.1) 02/13/18 13:06 Metamyelocytes # 0.0 K/mm3 02/13/18 13:06 Myelocytes # 0.0 K/mm3 02/13/18 13:06 Promyelocytes # 0.0 K/mm3 02/13/18 13:06 Blast Cells # 0.0 K/mm3 02/13/18 13:06 WBC Morphology Not Reportable 02/13/18 13:06 Hypersegmented Neuts Not Reportable 02/13/18 13:06 Hyposegmented Neuts Not Reportable 02/13/18 13:06 Hypogranular Neuts Not Reportable 02/13/18 13:06 Smudge Cells Not Reportable 02/13/18 13:06 Toxic Granulation Not Reportable 02/13/18 13:06 Toxic Vacuolation Not Reportable 02/13/18 13:06 Dohle Bodies Not Reportable 02/13/18 13:06 Pelger-Huet Anomaly Not Reportable 02/13/18 13:06 Sophia Rods Not Reportable 02/13/18 13:06 Platelet Estimate Consistent w auto 02/13/18 13:06 Clumped Platelets Not Reportable 02/13/18 13:06 Plt Clumps, EDTA Not Reportable 02/13/18 13:06 Large Platelets Not Reportable 02/13/18 13:06 Giant Platelets Not Reportable 02/13/18 13:06 Platelet Satelliting Not Reportable 02/13/18 13:06 Plt Morphology Comment Not Reportable 02/13/18 13:06 RBC Morphology Not Reportable 02/13/18 13:06 Dimorphic RBCs Not Reportable 02/13/18 13:06 Polychromasia Not Reportable 02/13/18 13:06 Hypochromasia Not Reportable 02/13/18 13:06 Poikilocytosis Not Reportable 02/13/18 13:06 Anisocytosis 1+ 02/13/18 13:06 Microcytosis Not Reportable 02/13/18 13:06 Macrocytosis Not Reportable 02/13/18 13:06 Spherocytes Not Reportable 02/13/18 13:06 Pappenheimer Bodies Not Reportable 02/13/18 13:06 Sickle Cells Not Reportable 02/13/18 13:06 Target Cells Not Reportable 02/13/18 13:06 Tear Drop Cells Not Reportable 02/13/18 13:06 Ovalocytes Not Reportable 02/13/18 13:06 Helmet Cells Not Reportable 02/13/18 13:06 [place] Bodies Not Reportable 02/13/18 13:06 [place] Rings Not Reportable 02/13/18 13:06 [place] Cells Not Reportable 02/13/18 13:06 Bite Cells Not Reportable 02/13/18 13:06 Crenated Cell Not Reportable 02/13/18 13:06 Elliptocytes Not Reportable 02/13/18 13:06 Acanthocytes (Spur) Not Reportable 02/13/18 13:06 Rouleaux Not Reportable 02/13/18 13:06 Hemoglobin C Crystals Not Reportable 02/13/18 13:06 Schistocytes Not Reportable 02/13/18 13:06 Malaria parasites Not Reportable 02/13/18 13:06 Ernst Bodies Not Reportable 02/13/18 13:06 Hem Pathologist Commnt No 02/13/18 13:06 PT 12.2 Sec. (12.2-14.9) 02/13/18 13:06 INR 0.87 (0.87-1.13) 02/13/18 13:06 APTT 25.7 Sec. (24.2-36.6) 02/13/18 13:06 Sodium 132 mmol/L (137-145) L 02/13/18 13:06 Potassium 4.6 mmol/L (3.6-5.0) 02/13/18 13:06 Chloride 92.9 mmol/L (98-107) L 02/13/18 13:06 Carbon Dioxide 26 mmol/L (22-30) 02/13/18 13:06 Anion Gap 18 mmol/L 02/13/18 13:06 BUN 12 mg/dL (9-20) 02/13/18 13:06 Creatinine 0.8 mg/dL (0.8-1.5) 02/13/18 13:06 Estimated GFR > 60 ml/min 02/13/18 13:06 BUN/Creatinine Ratio 15 % 02/13/18 13:06 Glucose 319 mg/dL (75-100) H 02/13/18 13:06 POC Glucose 249 (70-105) H 02/15/18 15:11 Lactic Acid 1.20 mmol/L (0.7-2.0) 02/13/18 22:53 Calcium 8.5 mg/dL (8.4-10.2) 02/13/18 13:06 Urine Color Yellow (Yellow) 02/14/18 05:45 Urine Turbidity Clear (Clear) 02/14/18 05:45 Urine pH 5.0 (5.0-7.0) 02/14/18 05:45 Ur Specific [place] > 1.035 (1.003-1.030) H 02/14/18 05:45 Urine Protein <15 mg/dl mg/dL (Negative) 02/14/18 05:45 Urine Glucose (UA) >=500 mg/dL (Negative) 02/14/18 05:45 Urine Ketones Tr mg/dL (Negative) 02/14/18 05:45 Urine Blood Neg (Negative) 02/14/18 05:45 Urine Nitrite Neg (Negative) 02/14/18 05:45 Urine Bilirubin Neg (Negative) 02/14/18 05:45 Urine Urobilinogen < 2.0 mg/dL (<2.0) 02/14/18 05:45 Ur Leukocyte Esterase Neg (Negative) 02/14/18 05:45 Urine WBC (Auto) < 1.0 /HPF (0.0-6.0) 02/14/18 05:45 Urine RBC (Auto) 2.0 /HPF (0.0-6.0) 02/14/18 05:45
[2018-02-15] MEDS: HABITROL TD SCH (23:00)
[2018-02-15] MEDS: ceFAZolin 1 GM in NACL 0.9% 20 ML IV SCH (23:14)
[2018-02-16] MEDS: ceFAZolin 1 GM in NACL 0.9% 20 ML IV SCH ×3 (05:48→20:30)
[2018-02-16] MEDS: ZOSYN/NS 4.5GM/100ML 4.5 GM/100 ML VIAL IV SCH ×3 (05:50→21:22)
--- NOTE | 2018-02-16 09:36 | XRay Report ---
FLUOROSCOPIC IMAGES LEFT HIP AND FEMUR FOUR VIEWS: 02/15/18 CLINICAL: Intraoperative images at [facility]. FINDINGS: Images demonstrate a nail in the hip traversing a neck fracture and placement of an intramedullary andrea in the femur. For more details, please refer to the operative report.
[2018-02-16] MEDS: THERAGRAN Tab PO SCH (09:59)
[2018-02-16] MEDS: PERCOCET 5/325 PO PRN ×2 (09:59→18:02)
[2018-02-16] MEDS: VITAMIN B-1 PO SCH (10:00)
[2018-02-16] MEDS: FOLVITE PO SCH ×2 (10:11→11:22)
--- NOTE | 2018-02-16 10:13 | Progress Note ---
Assessment and Plan s/p IM nail left femur doing well begin PT and continue observation Subjective Date of service: 02/16/18 Interval history: doing much better pain carvalho, ready to begin PT Objective Vital signs: Vital Signs - 12hr 02/15/18 02/16/18 02/16/18 23:09 00:39 04:19 Temperature 98.6 F 98.7 F Pulse Rate 110 H 105 H Respiratory 17 18 20 Rate Blood Pressure 98/69 110/83 O2 Sat by Pulse 94 95 Oximetry 02/16/18 02/16/18 07:28 07:32 Temperature 98.0 F 97.9 F Pulse Rate 84 Respiratory 20 18 Rate Blood Pressure 120/79 137/57 O2 Sat by Pulse 94 Oximetry - Labs CBC & BMP: 02/13/18 13:06 02/13/18 13:06 Labs: Abnormal lab results 02/15/18 02/15/18 Range/Units 12:08 15:11 POC Glucose 222 H 249 H (70-105)
[2018-02-16] MEDS: MORPHINE IV PRN (11:22)
--- NOTE | 2018-02-16 11:37 | Progress Note ---
Assessment and Plan Assessment and plan: 53 YO Male with Obesity, Nicotine Dependence presents to ED for evaluation. 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 Pt states that he was unable to stand up and bear weight on his left leg. Pt states that pain is 10/10, worse with movement, and relieved somewhat with non movement. Pt denies head trauma, loss of consciousness, CP, Palpitations, NVD, shortness of breath, BRBPR, . He presents with his left leg slightly shortened and rotated. He received 100 g of fentanyl and 4 mg of Zofran in route with EMS. He is a tobacco smoker. He denies any past medical history. He does not have a primary care physician. (1) SIRS, no clear evidence of sepsis Current Visit: Yes Status: Acute Qualifiers: Sepsis type: sepsis due to unspecified organism Qualified Code(s): A41.9 - Sepsis, unspecified organism Plan to address problem: Iv antibiotics, blood cultures, chest x ray, urinalysis, monitor uop q shift, serial lactic acid, CBC, BMP,urinalysis, chest x ray, CT angio chest showed pulmonary embolism We'll discontinue antibiotics at this time doubt pneumonia. (2) Pulmonary Embolisim Hold anticoagulation due to planned surgery s/p IVC filter by vascular Start anticoagulation when ok with surgery (3) Hypertensive urgency, malignant Current Visit: Yes Status: Acute Plan to address problem: monitor bp q shift, IV hydralazine prn for systolic above 160 (4) Nicotine dependence Current Visit: Yes Status: Acute Qualifiers: Substance use status: in withdrawal Plan to address problem: smoking cessation counseling, Pt refused to pick quit date. (5) Comminuted fracture of left hip Current Visit: Yes Status: Acute Qualifiers: Encounter type: initial encounter Fracture type: closed Qualified Code(s) : S72.092A - Other fracture of head and neck of left femur, initial encounter for closed fracture Plan to address problem: s/p Close reduction insertion of intramedullary nail left femur PT/OT PAIN CONTROL INCENTIVE SPIROMETERY Doing well with bowel undergoing physical therapy. (6) DVT prophylaxis Current Visit: Yes Status: Acute History Interval history: Patient seen and examined in no acute distress. Doing Well currently undergoing physical therapy. Also staff reports bowel movements. Hospitalist Physical - Physical exam Narrative exam: General appearance: Present: mild distress - EENT Eyes: Present: PERRL ENT: hearing intact, clear oral mucosa - Neck Neck: Present: supple, normal ROM - Respiratory Respiratory effort: normal Respiratory: bilateral: CTA - Cardiovascular Heart Sounds: Present: S1 & S2. Absent: rub, click - Extremities Extremities: pulses symmetrical, No edema Extremity abnormal: other (LLE externally rotated, pain with palpation and movement. ) Peripheral Pulses: abnormal (capillary refill greater than 3.6 seconds) - Abdominal General gastrointestinal: Present: soft, non-tender, non-distended, normal bowel sounds Male genitourinary: Present: normal - Rectal Rectal Exam: normal exam-external/orifice - Integumentary Integumentary: Present: clear, warm, dry - Musculoskeletal Musculoskeletal: gait normal, strength equal bilaterally - Psychiatric Psychiatric: appropriate mood/affect, intact judgment & insight - Neurologic Neurologic: CNII-XII intact, moves all extremities - Constitutional Vitals: Temp Pulse Resp BP Pulse Ox 97.9 F 84 18 137/57 94 02/16/18 07:32 02/16/18 07:32 02/16/18 07:32 02/16/18 07:32 02/16/18 07:32 General appearance: Present: mild distress Results - Labs CBC & Chem 7: 02/13/18 13:06 02/13/18 13:06 Labs: Laboratory Last Values WBC 21.4 K/mm3 (4.5-11.0) H 02/13/18 13:06 RBC 5.21 M/mm3 (3.65-5.03) H 02/13/18 13:06 Hgb 15.6 gm/dl (11.8-15.2) H 02/13/18 13:06 Hct 46.7 % (35.5-45.6) H 02/13/18 13:06 MCV 90 fl (84-94) 02/13/18 13:06 MCH 30 pg (28-32) 02/13/18 13:06 MCHC 34 % (32-34) 02/13/18 13:06 RDW 13.3 % (13.2-15.2) 02/13/18 13:06 Plt Count 249 K/mm3 (140-440) 02/13/18 13:06 Add Manual Diff Complete 02/13/18 13:06 Total Counted 200 03/21/18 13:06 Seg Neuts % (Manual) 90.0 % (40.0-70.0) H 02/13/18 13:06 Band Neutrophils % 0 % 02/13/18 13:06 Lymphocytes % (Manual) 5.0 % (13.4-35.0) L 02/13/18 13:06 Reactive Lymphs % (Man) 0 % 02/13/18 13:06 Monocytes % (Manual) 3.5 % (0.0-7.3) 02/13/18 13:06 Eosinophils % (Manual) 1.5 % (0.0-4.3) 02/13/18 13:06 Basophils % (Manual) 0 % (0.0-1.8) 02/13/18 13:06 Metamyelocytes % 0 % 02/13/18 13:06 Myelocytes % 0 % 02/13/18 13:06 Promyelocytes % 0 % 02/13/18 13:06 Blast Cells % 0 % 02/13/18 13:06 Nucleated RBC % Not Reportable 02/13/18 13:06 Seg Neutrophils # Man 19.3 K/mm3 (1.8-7.7) H 02/13/18 13:06 Band Neutrophils # 0.0 K/mm3 02/13/18 13:06 Lymphocytes # (Manual) 1.1 K/mm3 (1.2-5.4) L 02/13/18 13:06 Abs React Lymphs (Man) 0.0 K/mm3 02/13/18 13:06 Monocytes # (Manual) 0.7 K/mm3 (0.0-0.8) 02/13/18 13:06 Eosinophils # (Manual) 0.3 K/mm3 (0.0-0.4) 02/13/18 13:06 Basophils # (Manual) 0.0 K/mm3 (0.0-0.1) 02/13/18 13:06 Metamyelocytes # 0.0 K/mm3 02/13/18 13:06 Myelocytes # 0.0 K/mm3 02/13/18 13:06 Promyelocytes # 0.0 K/mm3 02/13/18 13:06 Blast Cells # 0.0 K/mm3 02/13/18 13:06 WBC Morphology Not Reportable 02/13/18 13:06 Hypersegmented Neuts Not Reportable 02/13/18 13:06 Hyposegmented Neuts Not Reportable 02/13/18 13:06 Hypogranular Neuts Not Reportable 02/13/18 13:06 Smudge Cells Not Reportable 02/13/18 13:06 Toxic Granulation Not Reportable 02/13/18 13:06 Toxic Vacuolation Not Reportable 02/13/18 13:06 Dohle Bodies Not Reportable 02/13/18 13:06 Pelger-Huet Anomaly Not Reportable 02/13/18 13:06 Sophia Rods Not Reportable 02/13/18 13:06 Platelet Estimate Consistent w auto 02/13/18 13:06 Clumped Platelets Not Reportable 02/13/18 13:06 Plt Clumps, EDTA Not Reportable 02/13/18 13:06 Large Platelets Not Reportable 02/13/18 13:06 Giant Platelets Not Reportable 02/13/18 13:06 Platelet Satelliting Not Reportable 02/13/18 13:06 Plt Morphology Comment Not Reportable 02/13/18 13:06 RBC Morphology Not Reportable 02/13/18 13:06 Dimorphic RBCs Not Reportable 02/13/18 13:06 Polychromasia Not Reportable 02/13/18 13:06 Hypochromasia Not Reportable 02/13/18 13:06 Poikilocytosis Not Reportable 02/13/18 13:06 Anisocytosis 1+ 02/13/18 13:06 Microcytosis Not Reportable 02/13/18 13:06 Macrocytosis Not Reportable 02/13/18 13:06 Spherocytes Not Reportable 02/13/18 13:06 Pappenheimer Bodies Not Reportable 02/13/18 13:06 Sickle Cells Not Reportable 02/13/18 13:06 Target Cells Not Reportable 02/13/18 13:06 Tear Drop Cells Not Reportable 02/13/18 13:06 Ovalocytes Not Reportable 02/13/18 13:06 Helmet Cells Not Reportable 02/13/18 13:06 [place] Bodies Not Reportable 02/13/18 13:06 [place] Rings Not Reportable 02/13/18 13:06 Edis Cells Not Reportable 02/13/18 13:06 Bite Cells Not Reportable 02/13/18 13:06 Crenated Cell Not Reportable 02/13/18 13:06 Elliptocytes Not Reportable 02/13/18 13:06 Acanthocytes (Spur) Not Reportable 02/13/18 13:06 Rouleaux Not Reportable 02/13/18 13:06 Hemoglobin C Crystals Not Reportable 02/13/18 13:06 Schistocytes Not Reportable 02/13/18 13:06 Malaria parasites Not Reportable 02/13/18 13:06 Ernst Bodies Not Reportable 02/13/18 13:06 Hem Pathologist Commnt No 02/13/18 13:06 PT 12.2 Sec. (12.2-14.9) 02/13/18 13:06 INR 0.87 (0.87-1.13) 02/13/18 13:06 APTT 25.7 Sec. (24.2-36.6) 02/13/18 13:06 Sodium 132 mmol/L (137-145) L 02/13/18 13:06 Potassium 4.6 mmol/L (3.6-5.0) 02/13/18 13:06 Chloride 92.9 mmol/L (98-107) L 02/13/18 13:06 Carbon Dioxide 26 mmol/L (22-30) 02/13/18 13:06 Anion Gap 18 mmol/L 02/13/18 13:06 BUN 12 mg/dL (9-20) 02/13/18 13:06 Creatinine 0.8 mg/dL (0.8-1.5) 02/13/18 13:06 Estimated GFR > 60 ml/min 02/13/18 13:06 BUN/Creatinine Ratio 15 % 02/13/18 13:06 Glucose 319 mg/dL (75-100) H 02/13/18 13:06 POC Glucose 249 (70-105) H 02/15/18 15:11 Lactic Acid 1.20 mmol/L (0.7-2.0) 02/13/18 22:53 Calcium 8.5 mg/dL (8.4-10.2) 02/13/18 13:06 Urine Color Yellow (Yellow) 02/14/18 05:45 Urine Turbidity Clear (Clear) 02/14/18 05:45 Urine pH 5.0 (5.0-7.0) 02/14/18 05:45 Ur Specific [place] > 1.035 (1.003-1.030) H 02/14/18 05:45 Urine Protein <15 mg/dl mg/dL (Negative) 02/14/18 05:45 Urine Glucose (UA) >=500 mg/dL (Negative) 02/14/18 05:45 Urine Ketones Tr mg/dL (Negative) 02/14/18 05:45 Urine Blood Neg (Negative) 02/14/18 05:45 Urine Nitrite Neg (Negative) 02/14/18 05:45 Urine Bilirubin Neg (Negative) 02/14/18 05:45 Urine Urobilinogen < 2.0 mg/dL (<2.0) 02/14/18 05:45 Ur Leukocyte Esterase Neg (Negative) 02/14/18 05:45 Urine WBC (Auto) < 1.0 /HPF (0.0-6.0) 02/14/18 05:45 Urine RBC (Auto) 2.0 /HPF (0.0-6.0) 02/14/18 05:45
[2018-02-16] MEDS: SODIUM CHLORIDE FLUSH SYRINGE 10 ML IV SCH ×2 (19:12→21:13)
[2018-02-16] MEDS: NACL 0.9% 1000 ML 1,000 ML IV SCH (20:45)
[2018-02-16] MEDS: HABITROL TD SCH (21:09)
[2018-02-17] MEDS: PERCOCET 5/325 PO PRN ×2 (00:26→21:45)
[2018-02-17] MEDS: NACL 0.9% 1000 ML 1,000 ML IV SCH ×2 (04:11→17:25)
[2018-02-17] MEDS: ZOSYN/NS 4.5GM/100ML 4.5 GM/100 ML VIAL IV SCH (06:04)
[2018-02-17] MEDS: MORPHINE IV PRN ×2 (09:41→17:26)
[2018-02-17] MEDS: FOLVITE PO SCH (09:41)
[2018-02-17] MEDS: VITAMIN B-1 PO SCH (09:41)
[2018-02-17] MEDS: SODIUM CHLORIDE FLUSH SYRINGE 10 ML IV SCH ×2 (09:42→23:21)
--- NOTE | 2018-02-17 10:14 | Progress Note ---
Assessment and Plan Assessment and plan: 53 YO Male with Obesity, Nicotine Dependence presents to ED for evaluation. 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 Pt states that he was unable to stand up and bear weight on his left leg. Pt states that pain is 10/10, worse with movement, and relieved somewhat with non movement. Pt denies head trauma, loss of consciousness, CP, Palpitations, NVD, shortness of breath, BRBPR, . He presents with his left leg slightly shortened and rotated. He received 100 g of fentanyl and 4 mg of Zofran in route with EMS. He is a tobacco smoker. He denies any past medical history. He does not have a primary care physician. On admission patient was noted to have a computed fracture. Status post Close reduction insertion of intramedullary nail left femur, he underwent a closed reduction insertion (TRAM medullary nail left femur prior to the procedure the patient was seen by vascular with a retrievable IVC filter placed due to position of pulmonary embolism. Anticoagulation was held and will be started once okay with orthopedic surgeon. Comminuted fracture of left hip * s/p Close reduction insertion of intramedullary nail left femur * PT/OT,PAIN CONTROL,INCENTIVE SPIROMETERY SIRS secondary to noninfectious etiology * Chest x-ray negative for infection antibiotics of Zosyn discontinued at this time. We'll monitor Pulmonary embolism * Retrievable IVC filter placed by vascular. We'll start anticoagulation when okay with surgery Elevated Blood glucose * Start insulin sliding scale * Check A1c, ?NEW ONSET DM Leukocytosis * Likely reactive will monitor. Hypertensive urgency * Stable continue current therapy at this time Nicotine dependence * 15 minutes of counseling provided to the patient. He still refuses to pick a quit date. 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 He understands the risk associated with continued tobacco use. DVT and GI prophylaxis History Interval history: Patient seen and examined in no acute distress. Doing Well currently undergoing physical therapy, Ambulating but shuffling. Hospitalist Physical - Physical exam Narrative exam: General appearance: Present: mild distress - EENT Eyes: Present: PERRL ENT: hearing intact, clear oral mucosa - Neck Neck: Present: supple, normal ROM - Respiratory Respiratory effort: normal Respiratory: bilateral: CTA - Cardiovascular Heart Sounds: Present: S1 & S2. Absent: rub, click - Extremities Extremities: pulses symmetrical, No edema Extremity abnormal: other (LLE externally rotated, pain with palpation and movement. ) Peripheral Pulses: abnormal (capillary refill greater than 3.6 seconds) - Abdominal General gastrointestinal: Present: soft, non-tender, non-distended, normal bowel sounds Male genitourinary: Present: normal - Rectal Rectal Exam: normal exam-external/orifice - Integumentary Integumentary: Present: clear, warm, dry - Musculoskeletal Musculoskeletal: gait normal, strength equal bilaterally - Psychiatric Psychiatric: appropriate mood/affect, intact judgment & insight - Neurologic Neurologic: CNII-XII intact, moves all extremities - Constitutional Vitals: Temp Pulse Resp BP Pulse Ox 97.9 F 98 H 20 146/77 95 02/17/18 07:24 02/17/18 07:24 02/17/18 07:24 02/17/18 07:24 02/17/18 07:24 General appearance: Present: mild distress Results - Labs CBC & Chem 7: 02/13/18 13:06 02/13/18 13:06 Labs: Laboratory Last Values WBC 21.4 K/mm3 (4.5-11.0) H 02/13/18 13:06 RBC 5.21 M/mm3 (3.65-5.03) H 02/13/18 13:06 Hgb 15.6 gm/dl (11.8-15.2) H 02/13/18 13:06 Hct 46.7 % (35.5-45.6) H 02/13/18 13:06 MCV 90 fl (84-94) 02/13/18 13:06 MCH 30 pg (28-32) 02/13/18 13:06 MCHC 34 % (32-34) 02/13/18 13:06 RDW 13.3 % (13.2-15.2) 02/13/18 13:06 Plt Count 249 K/mm3 (140-440) 02/13/18 13:06 Add Manual Diff Complete 02/13/18 13:06 Total Counted 200 02/13/18 13:06 Seg Neuts % (Manual) 90.0 % (40.0-70.0) H 02/13/18 13:06 Band Neutrophils % 0 % 02/13/18 13:06 Lymphocytes % (Manual) 5.0 % (13.4-35.0) L 02/13/18 13:06 Reactive Lymphs % (Man) 0 % 02/13/18 13:06 Monocytes % (Manual) 3.5 % (0.0-7.3) 02/13/18 13:06 Eosinophils % (Manual) 1.5 % (0.0-4.3) 02/13/18 13:06 Basophils % (Manual) 0 % (0.0-1.8) 02/13/18 13:06 Metamyelocytes % 0 % 02/13/18 13:06 Myelocytes % 0 % 02/13/18 13:06 Promyelocytes % 0 % 02/13/18 13:06 Blast Cells % 0 % 02/13/18 13:06 Nucleated RBC % Not Reportable 02/13/18 13:06 Seg Neutrophils # Man 19.3 K/mm3 (1.8-7.7) H 02/13/18 13:06 Band Neutrophils # 0.0 K/mm3 02/13/18 13:06 Lymphocytes # (Manual) 1.1 K/mm3 (1.2-5.4) L 02/13/18 13:06 Abs React Lymphs (Man) 0.0 K/mm3 02/13/18 13:06 Monocytes # (Manual) 0.7 K/mm3 (0.0-0.8) 02/13/18 13:06 Eosinophils # (Manual) 0.3 K/mm3 (0.0-0.4) 02/13/18 13:06 Basophils # (Manual) 0.0 K/mm3 (0.0-0.1) 02/13/18 13:06 Metamyelocytes # 0.0 K/mm3 02/13/18 13:06 Myelocytes # 0.0 K/mm3 02/13/18 13:06 Promyelocytes # 0.0 K/mm3 02/13/18 13:06 Blast Cells # 0.0 K/mm3 02/13/18 13:06 WBC Morphology Not Reportable 02/13/18 13:06 Hypersegmented Neuts Not Reportable 02/13/18 13:06 Hyposegmented Neuts Not Reportable 02/13/18 13:06 Hypogranular Neuts Not Reportable 02/13/18 13:06 Smudge Cells Not Reportable 02/13/18 13:06 Toxic Granulation Not Reportable 02/13/18 13:06 Toxic Vacuolation Not Reportable 02/13/18 13:06 Dohle Bodies Not Reportable 02/13/18 13:06 Pelger-Huet Anomaly Not Reportable 02/13/18 13:06 Sophia Rods Not Reportable 02/13/18 13:06 Platelet Estimate Consistent w auto 02/13/18 13:06 Clumped Platelets Not Reportable 02/13/18 13:06 Plt Clumps, EDTA Not Reportable 02/13/18 13:06 Large Platelets Not Reportable 02/13/18 13:06 Giant Platelets Not Reportable 02/13/18 13:06 Platelet Satelliting Not Reportable 02/13/18 13:06 Plt Morphology Comment Not Reportable 02/13/18 13:06 RBC Morphology Not Reportable 02/13/18 13:06 Dimorphic RBCs Not Reportable 02/13/18 13:06 Polychromasia Not Reportable 02/13/18 13:06 Hypochromasia Not Reportable 02/13/18 13:06 Poikilocytosis Not Reportable 02/13/18 13:06 Anisocytosis 1+ 02/13/18 13:06 Microcytosis Not Reportable 02/13/18 13:06 Macrocytosis Not Reportable 02/13/18 13:06 Spherocytes Not Reportable 02/13/18 13:06 Pappenheimer Bodies Not Reportable 02/13/18 13:06 Sickle Cells Not Reportable 02/13/18 13:06 Target Cells Not Reportable 02/13/18 13:06 Tear Drop Cells Not Reportable 02/13/18 13:06 Ovalocytes Not Reportable 02/13/18 13:06 Helmet Cells Not Reportable 02/13/18 13:06 [place] Bodies Not Reportable 02/13/18 13:06 [place] Rings Not Reportable 02/13/18 13:06 [place] Cells Not Reportable 02/13/18 13:06 Bite Cells Not Reportable 02/13/18 13:06 Crenated Cell Not Reportable 02/13/18 13:06 Elliptocytes Not Reportable 02/13/18 13:06 Acanthocytes (Spur) Not Reportable 02/13/18 13:06 Rouleaux Not Reportable 02/13/18 13:06 Hemoglobin C Crystals Not Reportable 02/13/18 13:06 Schistocytes Not Reportable 02/13/18 13:06 Malaria parasites Not Reportable 02/13/18 13:06 Ernst Bodies Not Reportable 02/13/18 13:06 Hem Pathologist Commnt No 02/13/18 13:06 PT 12.2 Sec. (12.2-14.9) 02/13/18 13:06 INR 0.87 (0.87-1.13) 02/13/18 13:06 APTT 25.7 Sec. (24.2-36.6) 02/13/18 13:06 Sodium 132 mmol/L (137-145) L 02/13/18 13:06 Potassium 4.6 mmol/L (3.6-5.0) 02/13/18 13:06 Chloride 92.9 mmol/L (98-107) L 02/13/18 13:06 Carbon Dioxide 26 mmol/L (22-30) 02/13/18 13:06 Anion Gap 18 mmol/L 02/13/18 13:06 BUN 12 mg/dL (9-20) 02/13/18 13:06 Creatinine 0.8 mg/dL (0.8-1.5) 02/13/18 13:06 Estimated GFR > 60 ml/min 02/13/18 13:06 BUN/Creatinine Ratio 15 % 02/13/18 13:06 Glucose 319 mg/dL (75-100) H 02/13/18 13:06 POC Glucose 249 (70-105) H 02/15/18 15:11 Lactic Acid 1.20 mmol/L (0.7-2.0) 02/13/18 22:53 Calcium 8.5 mg/dL (8.4-10.2) 02/13/18 13:06 Urine Color Yellow (Yellow) 02/14/18 05:45 Urine Turbidity Clear (Clear) 02/14/18 05:45 Urine pH 5.0 (5.0-7.0) 02/14/18 05:45 Ur Specific [place] > 1.035 (1.003-1.030) H 02/14/18 05:45 Urine Protein <15 mg/dl mg/dL (Negative) 02/14/18 05:45 Urine Glucose (UA) >=500 mg/dL (Negative) 02/14/18 05:45 Urine Ketones Tr mg/dL (Negative) 02/14/18 05:45 Urine Blood Neg (Negative) 02/14/18 05:45 Urine Nitrite Neg (Negative) 02/14/18 05:45 Urine Bilirubin Neg (Negative) 02/14/18 05:45 Urine Urobilinogen < 2.0 mg/dL (<2.0) 02/14/18 05:45 Ur Leukocyte Esterase Neg (Negative) 02/14/18 05:45 Urine WBC (Auto) < 1.0 /HPF (0.0-6.0) 02/14/18 05:45 Urine RBC (Auto) 2.0 /HPF (0.0-6.0) 02/14/18 05:45
[2018-02-17] MEDS: THERAGRAN Tab PO SCH (10:23)
[2018-02-17] MEDS: HumaLOG SUB-Q SCH ×3 (11:45→23:17)
[2018-02-17] MEDS: HABITROL TD SCH (21:45)
[2018-02-18] MEDS: NACL 0.9% 1000 ML 1,000 ML IV SCH ×2 (00:46→12:10)
[2018-02-18 05:56] LABS: Hematocrit 36.2 % (35.5-45.6); Mean Corpuscular HGB Conc 33 % (32-34); Mean Corpuscular Hemoglobin 30 pg (28-32); Mean Corpuscular Volume 90 fl (84-94); Platelet Count 237 K/mm3 (140-440); Red Blood Count 4.04 M/mm3 (3.65-5.03); Red Cell Distribution Width 13.2 % (13.2-15.2)
[2018-02-18 06:24] LABS: BUN/Creatinine Ratio 15; Blood Urea Nitrogen 9 mg/dL (9-20); Hemolysis Index 1
[2018-02-18] MEDS: HumaLOG SUB-Q SCH ×4 (08:36→22:08)
[2018-02-18] MEDS: PERCOCET 5/325 PO PRN ×2 (08:46→19:00)
[2018-02-18] MEDS: VITAMIN B-1 PO SCH (09:10)
[2018-02-18] MEDS: THERAGRAN Tab PO SCH (09:10)
[2018-02-18] MEDS: SODIUM CHLORIDE FLUSH SYRINGE 10 ML IV SCH ×2 (09:11→21:43)
[2018-02-18] MEDS: FOLVITE PO SCH (09:12)
--- NOTE | 2018-02-18 12:24 | Progress Note ---
Assessment and Plan Assessment and plan: Comminuted fracture of left hip * s/p Close reduction insertion of intramedullary nail left femur * PT/OT,Pain control, * SIRS secondary to non-infectious etiology * Chest x-ray negative for infection antibiotics of Zosyn discontinued at this time. We'll monitor * Pulmonary embolism * Retrievable IVC filter placed by vascular. We'll start anticoagulation when okay with surgery * Diabetes mellitus type 2 * Continue Insulin sliding scale * A1C 11.1 ?New onset diabetes * Start Novolin 70/30 bid * Leukocytosis * Likely reactive will monitor. * Hypertensive urgency. BP improving. will monitor * * Nicotine dependence * * DVT prophylaxis. SCDs for now History Interval history: Less pain surgical site, No fever Hospitalist Physical - Physical exam Narrative exam: Gen appearance: Not in acute distress, lying in bed, obese HEENT:Normocephalic, atraumatic Neck:supple, no JVD Lungs: Clear to auscultation bilaterally, no crackles , no wheeze Heart: S1 and S2 regular, no murmurs, rubs or gallop Abdomen: soft, non tender, non distended, normal bowel sounds Ext: No edema, no clubbing, no cyanosis, Dressing over left hip Neuro: Awake,alert,oriented x 3, moves all extremities, non focal Psych: Normal mood - Constitutional Vitals: Temp Pulse Resp BP Pulse Ox 98.6 F 96 H 18 145/112 94 02/18/18 07:40 02/18/18 07:40 02/18/18 07:40 02/18/18 07:40 02/18/18 07:40 Results - Labs CBC & Chem 7: 02/18/18 04:46 02/18/18 04:46 Labs: Laboratory Last Values WBC 16.1 K/mm3 (4.5-11.0) H 02/18/18 04:46 RBC 4.04 M/mm3 (3.65-5.03) 02/18/18 04:46 Hgb 12.0 gm/dl (11.8-15.2) 02/18/18 04:46 Hct 36.2 % (35.5-45.6) 02/18/18 04:46 MCV 90 fl (84-94) 02/18/18 04:46 MCH 30 pg (28-32) 02/18/18 04:46 MCHC 33 % (32-34) 02/18/18 04:46 RDW 13.2 % (13.2-15.2) 02/18/18 04:46 Plt Count 237 K/mm3 (140-440) 02/18/18 04:46 Add Manual Diff Complete 02/13/18 13:06 Total Counted 200 02/13/18 13:06 Seg Neuts % (Manual) 90.0 % (40.0-70.0) H 02/13/18 13:06 Band Neutrophils % 0 % 02/13/18 13:06 Lymphocytes % (Manual) 5.0 % (13.4-35.0) L 02/13/18 13:06 Reactive Lymphs % (Man) 0 % 02/13/18 13:06 Monocytes % (Manual) 3.5 % (0.0-7.3) 02/13/18 13:06 Eosinophils % (Manual) 1.5 % (0.0-4.3) 02/13/18 13:06 Basophils % (Manual) 0 % (0.0-1.8) 02/13/18 13:06 Metamyelocytes % 0 % 02/13/18 13:06 Myelocytes % 0 % 02/13/18 13:06 Promyelocytes % 0 % 02/13/18 13:06 Blast Cells % 0 % 02/13/18 13:06 Nucleated RBC % Not Reportable 02/13/18 13:06 Seg Neutrophils # Man 19.3 K/mm3 (1.8-7.7) H 02/13/18 13:06 Band Neutrophils # 0.0 K/mm3 02/13/18 13:06 Lymphocytes # (Manual) 1.1 K/mm3 (1.2-5.4) L 02/13/18 13:06 Abs React Lymphs (Man) 0.0 K/mm3 02/13/18 13:06 Monocytes # (Manual) 0.7 K/mm3 (0.0-0.8) 02/13/18 13:06 Eosinophils # (Manual) 0.3 K/mm3 (0.0-0.4) 02/13/18 13:06 Basophils # (Manual) 0.0 K/mm3 (0.0-0.1) 02/13/18 13:06 Metamyelocytes # 0.0 K/mm3 02/13/18 13:06 Myelocytes # 0.0 K/mm3 02/13/18 13:06 Promyelocytes # 0.0 K/mm3 02/13/18 13:06 Blast Cells # 0.0 K/mm3 02/13/18 13:06 WBC Morphology Not Reportable 02/13/18 13:06 Hypersegmented Neuts Not Reportable 02/13/18 13:06 Hyposegmented Neuts Not Reportable 02/13/18 13:06 Hypogranular Neuts Not Reportable 02/13/18 13:06 Smudge Cells Not Reportable 02/13/18 13:06 Toxic Granulation Not Reportable 02/13/18 13:06 Toxic Vacuolation Not Reportable 02/13/18 13:06 Dohle Bodies Not Reportable 02/13/18 13:06 Pelger-Huet Anomaly Not Reportable 02/13/18 13:06 Sophia Rods Not Reportable 02/13/18 13:06 Platelet Estimate Consistent w auto 02/13/18 13:06 Clumped Platelets Not Reportable 02/13/18 13:06 Plt Clumps, EDTA Not Reportable 02/13/18 13:06 Large Platelets Not Reportable 02/13/18 13:06 Giant Platelets Not Reportable 02/13/18 13:06 Platelet Satelliting Not Reportable 02/13/18 13:06 Plt Morphology Comment Not Reportable 02/13/18 13:06 RBC Morphology Not Reportable 02/13/18 13:06 Dimorphic RBCs Not Reportable 02/13/18 13:06 Polychromasia Not Reportable 02/13/18 13:06 Hypochromasia Not Reportable 02/13/18 13:06 Poikilocytosis Not Reportable 02/13/18 13:06 Anisocytosis 1+ 02/13/18 13:06 Microcytosis Not Reportable 02/13/18 13:06 Macrocytosis Not Reportable 02/13/18 13:06 Spherocytes Not Reportable 02/13/18 13:06 Pappenheimer Bodies Not Reportable 02/13/18 13:06 Sickle Cells Not Reportable 02/13/18 13:06 Target Cells Not Reportable 02/13/18 13:06 Tear Drop Cells Not Reportable 02/13/18 13:06 Ovalocytes Not Reportable 02/13/18 13:06 Helmet Cells Not Reportable 02/13/18 13:06 [place] Bodies Not Reportable 02/13/18 13:06 [place] Rings Not Reportable 02/13/18 13:06 Edis Cells Not Reportable 02/13/18 13:06 Bite Cells Not Reportable 02/13/18 13:06 Crenated Cell Not Reportable 02/13/18 13:06 Elliptocytes Not Reportable 02/13/18 13:06 Acanthocytes (Spur) Not Reportable 02/13/18 13:06 Rouleaux Not Reportable 02/13/18 13:06 Hemoglobin C Crystals Not Reportable 02/13/18 13:06 Schistocytes Not Reportable 02/13/18 13:06 Malaria parasites Not Reportable 02/13/18 13:06 Ernst Bodies Not Reportable 02/13/18 13:06 Hem Pathologist Commnt No 02/13/18 13:06 PT 12.2 Sec. (12.2-14.9) 02/13/18 13:06 INR 0.87 (0.87-1.13) 02/13/18 13:06 APTT 25.7 Sec. (24.2-36.6) 02/13/18 13:06 Sodium 138 mmol/L (137-145) 02/18/18 04:46 Potassium 3.6 mmol/L (3.6-5.0) D 02/18/18 04:46 Chloride 99.8 mmol/L (98-107) 02/18/18 04:46 Carbon Dioxide 23 mmol/L (22-30) 02/18/18 04:46 Anion Gap 19 mmol/L 02/18/18 04:46 BUN 9 mg/dL (9-20) 02/18/18 04:46 Creatinine 0.6 mg/dL (0.8-1.5) L 02/18/18 04:46 Estimated GFR > 60 ml/min 02/18/18 04:46 BUN/Creatinine Ratio 15 % 02/18/18 04:46 Glucose 228 mg/dL (75-100) H 02/18/18 04:46 POC Glucose 253 (70-105) H 02/18/18 11:23 Hemoglobin A1c 11.1 % (4-6) H 02/17/18 11:55 Lactic Acid 1.20 mmol/L (0.7-2.0) 02/13/18 22:53 Calcium 8.0 mg/dL (8.4-10.2) L 02/18/18 04:46 Urine Color Yellow (Yellow) 02/14/18 05:45 Urine Turbidity Clear (Clear) 02/14/18 05:45 Urine pH 5.0 (5.0-7.0) 02/14/18 05:45 Ur Specific [place] > 1.035 (1.003-1.030) H 02/14/18 05:45 Urine Protein <15 mg/dl mg/dL (Negative) 02/14/18 05:45 Urine Glucose (UA) >=500 mg/dL (Negative) 02/14/18 05:45 Urine Ketones Tr mg/dL (Negative) 02/14/18 05:45 Urine Blood Neg (Negative) 02/14/18 05:45 Urine Nitrite Neg (Negative) 02/14/18 05:45 Urine Bilirubin Neg (Negative) 02/14/18 05:45 Urine Urobilinogen < 2.0 mg/dL (<2.0) 02/14/18 05:45 Ur Leukocyte Esterase Neg (Negative) 02/14/18 05:45 Urine WBC (Auto) < 1.0 /HPF (0.0-6.0) 02/14/18 05:45 Urine RBC (Auto) 2.0 /HPF (0.0-6.0) 02/14/18 05:45
[2018-02-18] MEDS: MORPHINE IV PRN ×2 (12:48→21:59)
[2018-02-18] MEDS: HABITROL TD SCH (21:59)
[2018-02-19] MEDS: PERCOCET 5/325 PO PRN ×2 (04:43→13:48)
[2018-02-19] MEDS: VITAMIN B-1 PO SCH (08:59)
[2018-02-19] MEDS: HumaLOG SUB-Q SCH ×3 (09:00→17:20)
[2018-02-19] MEDS: FOLVITE PO SCH (09:00)
[2018-02-19] MEDS: THERAGRAN Tab PO SCH (09:00)
[2018-02-19] MEDS: SODIUM CHLORIDE FLUSH SYRINGE 10 ML IV SCH (09:01)
[2018-02-19] MEDS: MORPHINE IV PRN ×2 (09:20→16:05)
[2018-02-19] MEDS ORDERED: IMODIUM PO PRN (12:55)
--- NOTE | 2018-02-19 13:26 | Progress Note ---
Assessment and Plan Assessment and plan: Comminuted fracture of left hip * s/p Close reduction insertion of intramedullary nail left femur * PT/OT,Pain control, * SIRS secondary to non-infectious etiology * Chest x-ray negative for infection antibiotics of Zosyn discontinued at this time. We'll monitor * Pulmonary embolism * Retrievable IVC filter placed by vascular. * Discussed with Dr. Verdugo. Ok to start anticoagulation. * Will start Eliquis. Diabetes mellitus type 2 * Continue Insulin sliding scale * A1C 11.1 ?New onset diabetes * Started Novolin 70/30 bid * Blood glucose improving * * Leukocytosis * Improving, reactive. will monitor. * Hypertensive urgency. BP improving. will monitor * * Nicotine dependence * * DVT prophylaxis. Starting Eliquis History Interval history: Less pain surgical site, Anxious about going home Hospitalist Physical - Physical exam Narrative exam: Gen appearance: Not in acute distress, lying in bed, obese HEENT:Normocephalic, atraumatic Neck:supple, no JVD Lungs: Clear to auscultation bilaterally, no crackles , no wheeze Heart: S1 and S2 regular, no murmurs, rubs or gallop Abdomen: soft, non tender, non distended, normal bowel sounds Ext: No edema, no clubbing, no cyanosis, Dressing over left hip Neuro: Awake,alert,oriented x 3, moves all extremities, non focal Psych: Normal mood - Constitutional Vitals: Temp Pulse Resp BP Pulse Ox 98.1 F 104 H 20 161/82 93 02/19/18 12:14 02/19/18 12:15 02/19/18 12:14 02/19/18 12:15 02/19/18 12:15 Results - Labs CBC & Chem 7: 02/18/18 04:46 02/18/18 04:46 Labs: Laboratory Last Values WBC 16.1 K/mm3 (4.5-11.0) H 02/18/18 04:46 RBC 4.04 M/mm3 (3.65-5.03) 02/18/18 04:46 Hgb 12.0 gm/dl (11.8-15.2) 02/18/18 04:46 Hct 36.2 % (35.5-45.6) 02/18/18 04:46 MCV 90 fl (84-94) 02/18/18 04:46 MCH 30 pg (28-32) 02/18/18 04:46 MCHC 33 % (32-34) 02/18/18 04:46 RDW 13.2 % (13.2-15.2) 02/18/18 04:46 Plt Count 237 K/mm3 (140-440) 02/18/18 04:46 Add Manual Diff Complete 02/13/18 13:06 Total Counted 200 02/13/18 13:06 Seg Neuts % (Manual) 90.0 % (40.0-70.0) H 02/13/18 13:06 Band Neutrophils % 0 % 02/13/18 13:06 Lymphocytes % (Manual) 5.0 % (13.4-35.0) L 02/13/18 13:06 Reactive Lymphs % (Man) 0 % 02/13/18 13:06 Monocytes % (Manual) 3.5 % (0.0-7.3) 02/13/18 13:06 Eosinophils % (Manual) 1.5 % (0.0-4.3) 02/13/18 13:06 Basophils % (Manual) 0 % (0.0-1.8) 02/13/18 13:06 Metamyelocytes % 0 % 02/13/18 13:06 Myelocytes % 0 % 02/13/18 13:06 Promyelocytes % 0 % 02/13/18 13:06 Blast Cells % 0 % 02/13/18 13:06 Nucleated RBC % Not Reportable 02/13/18 13:06 Seg Neutrophils # Man 19.3 K/mm3 (1.8-7.7) H 02/13/18 13:06 Band Neutrophils # 0.0 K/mm3 02/13/18 13:06 Lymphocytes # (Manual) 1.1 K/mm3 (1.2-5.4) L 02/13/18 13:06 Abs React Lymphs (Man) 0.0 K/mm3 02/13/18 13:06 Monocytes # (Manual) 0.7 K/mm3 (0.0-0.8) 02/13/18 13:06 Eosinophils # (Manual) 0.3 K/mm3 (0.0-0.4) 02/13/18 13:06 Basophils # (Manual) 0.0 K/mm3 (0.0-0.1) 02/13/18 13:06 Metamyelocytes # 0.0 K/mm3 02/13/18 13:06 Myelocytes # 0.0 K/mm3 02/13/18 13:06 Promyelocytes # 0.0 K/mm3 02/13/18 13:06 Blast Cells # 0.0 K/mm3 02/13/18 13:06 WBC Morphology Not Reportable 02/13/18 13:06 Hypersegmented Neuts Not Reportable 02/13/18 13:06 Hyposegmented Neuts Not Reportable 02/13/18 13:06 Hypogranular Neuts Not Reportable 02/13/18 13:06 Smudge Cells Not Reportable 02/13/18 13:06 Toxic Granulation Not Reportable 02/13/18 13:06 Toxic Vacuolation Not Reportable 02/13/18 13:06 Dohle Bodies Not Reportable 02/13/18 13:06 Pelger-Huet Anomaly Not Reportable 02/13/18 13:06 Sophia Rods Not Reportable 02/13/18 13:06 Platelet Estimate Consistent w auto 02/13/18 13:06 Clumped Platelets Not Reportable 02/13/18 13:06 Plt Clumps, EDTA Not Reportable 02/13/18 13:06 Large Platelets Not Reportable 02/13/18 13:06 Giant Platelets Not Reportable 02/13/18 13:06 Platelet Satelliting Not Reportable 02/13/18 13:06 Plt Morphology Comment Not Reportable 02/13/18 13:06 RBC Morphology Not Reportable 02/13/18 13:06 Dimorphic RBCs Not Reportable 02/13/18 13:06 Polychromasia Not Reportable 02/13/18 13:06 Hypochromasia Not Reportable 02/13/18 13:06 Poikilocytosis Not Reportable 02/13/18 13:06 Anisocytosis 1+ 02/13/18 13:06 Microcytosis Not Reportable 02/13/18 13:06 Macrocytosis Not Reportable 02/13/18 13:06 Spherocytes Not Reportable 02/13/18 13:06 Pappenheimer Bodies Not Reportable 02/13/18 13:06 Sickle Cells Not Reportable 02/13/18 13:06 Target Cells Not Reportable 02/13/18 13:06 Tear Drop Cells Not Reportable 02/13/18 13:06 Ovalocytes Not Reportable 02/13/18 13:06 Helmet Cells Not Reportable 02/13/18 13:06 Bond-Wanchese Bodies Not Reportable 02/13/18 13:06 Tabiona Rings Not Reportable 02/13/18 13:06 Edis Cells Not Reportable 02/13/18 13:06 Bite Cells Not Reportable 02/13/18 13:06 Crenated Cell Not Reportable 02/13/18 13:06 Elliptocytes Not Reportable 02/13/18 13:06 Acanthocytes (Spur) Not Reportable 02/13/18 13:06 Rouleaux Not Reportable 02/13/18 13:06 Hemoglobin C Crystals Not Reportable 02/13/18 13:06 Schistocytes Not Reportable 02/13/18 13:06 Malaria parasites Not Reportable 02/13/18 13:06 Ernst Bodies Not Reportable 02/13/18 13:06 Hem Pathologist Commnt No 02/13/18 13:06 PT 12.2 Sec. (12.2-14.9) 02/13/18 13:06 INR 0.87 (0.87-1.13) 02/13/18 13:06 APTT 25.7 Sec. (24.2-36.6) 02/13/18 13:06 Sodium 138 mmol/L (137-145) 02/18/18 04:46 Potassium 3.6 mmol/L (3.6-5.0) D 02/18/18 04:46 Chloride 99.8 mmol/L (98-107) 02/18/18 04:46 Carbon Dioxide 23 mmol/L (22-30) 02/18/18 04:46 Anion Gap 19 mmol/L 02/18/18 04:46 BUN 9 mg/dL (9-20) 02/18/18 04:46 Creatinine 0.6 mg/dL (0.8-1.5) L 02/18/18 04:46 Estimated GFR > 60 ml/min 02/18/18 04:46 BUN/Creatinine Ratio 15 % 02/18/18 04:46 Glucose 228 mg/dL (75-100) H 02/18/18 04:46 POC Glucose 164 (70-105) H 02/19/18 11:42 Hemoglobin A1c 11.1 % (4-6) H 02/17/18 11:55 Lactic Acid 1.20 mmol/L (0.7-2.0) 02/13/18 22:53 Calcium 8.0 mg/dL (8.4-10.2) L 02/18/18 04:46 Urine Color Yellow (Yellow) 02/14/18 05:45 Urine Turbidity Clear (Clear) 02/14/18 05:45 Urine pH 5.0 (5.0-7.0) 02/14/18 05:45 Ur Specific Byron > 1.035 (1.003-1.030) H 02/14/18 05:45 Urine Protein <15 mg/dl mg/dL (Negative) 02/14/18 05:45 Urine Glucose (UA) >=500 mg/dL (Negative) 02/14/18 05:45 Urine Ketones Tr mg/dL (Negative) 02/14/18 05:45 Urine Blood Neg (Negative) 02/14/18 05:45 Urine Nitrite Neg (Negative) 02/14/18 05:45 Urine Bilirubin Neg (Negative) 02/14/18 05:45 Urine Urobilinogen < 2.0 mg/dL (<2.0) 02/14/18 05:45 Ur Leukocyte Esterase Neg (Negative) 02/14/18 05:45 Urine WBC (Auto) < 1.0 /HPF (0.0-6.0) 02/14/18 05:45 Urine RBC (Auto) 2.0 /HPF (0.0-6.0) 02/14/18 05:45
--- NOTE | 2018-02-19 13:51 | Progress Note ---
Assessment and Plan s/p IM nailing left femur doing well will dc today pending DME arrival and medical clearance Subjective Date of service: 02/19/18 Interval history: wants to go home today, otherwise ok...awaiting heavy duty walker.... Objective Vital signs: Vital Signs - 12hr 02/19/18 02/19/18 02/19/18 04:20 04:43 07:09 Temperature 98.8 F 98.3 F Pulse Rate 98 H 95 H Respiratory 20 18 20 Rate Blood Pressure Blood Pressure 157/88 170/92 [Right] O2 Sat by Pulse 94 Oximetry 02/19/18 02/19/18 02/19/18 09:20 09:50 10:00 Temperature Pulse Rate Respiratory 20 18 Rate Blood Pressure Blood Pressure [Right] O2 Sat by Pulse 94 Oximetry 02/19/18 02/19/18 12:14 12:15 Temperature 98.1 F Pulse Rate 101 H 104 H Respiratory 20 Rate Blood Pressure 161/82 161/82 Blood Pressure [Right] O2 Sat by Pulse 96 93 Oximetry - Labs CBC & BMP: 02/18/18 04:46 02/18/18 04:46 Labs: Abnormal lab results 02/18/18 02/18/18 02/19/18 Range/Units 16:15 21:46 07:35 POC Glucose 286 H 297 H 225 H (70-105) 02/19/18 Range/Units 11:42 POC Glucose 164 H (70-105)
[2018-02-19 17:52] VITALS: BP 155/84
[2018-02-19] MEDS ORDERED: ELIQUIS PO SCH (22:00)
--- NOTE | 2018-02-20 09:43 | Discharge Summary ---
Providers - Providers Date of Admission: 02/13/18 13:18 Date of discharge: 02/19/18 Attending physician: SOBIA GERMAN 02/14/18 09:17 Consult to Physician [CONS] Routine Comment: Consulting Provider: WALT GUDINO Physician Instructions: Reason For Exam: ivc filter-Retrivable 02/15/18 14:55 Physical Therapy Evaluation and Treat [CONS] Routine Comment: Reason For Exam: post op evaluation Weight bearing status?: Partial wt bearing Assistive devices?: Yes If so list: Walker Primary care physician: [employer] Hospitalization Condition: Fair Disposition: DC-01 TO HOME OR SELFCARE Core Measure Documentation - Palliative Care Palliative Care/ Comfort Measures: Not Applicable - Core Measures Any of the following diagnoses?: none Exam - Constitutional Vitals: Temp Pulse Resp BP Pulse Ox 98.0 F 103 H 20 155/84 95 02/19/18 17:04 02/19/18 17:04 02/19/18 17:04 02/19/18 17:04 02/19/18 20:07 Plan Activity: advance as tolerated Diet: low fat, low cholesterol, low salt, diabetic Special Instructions: physical therapy, home health RN Durable Medical Equipment Needed Upon Discharge: Walker-Rolling Additional Instructions: 1.Follow up with PCP or [facility] in 1 week. 2.Follow up with Dr. Verdugo Ortho in 1 week. 3.Follow up with Dr. Gudino in 2 weeks. 4.Home health Physical Therapy. 5.Home health Nurse. 6.Ambulate with heavy duty walker. 7.Anticoagulartion with Eliquis for 3 months Follow up with: PRIMARY CARE, [Primary Care Provider] - 7 Days Prescriptions: amLODIPine [Norvasc] 5 mg PO DAILY #30 tab Apixaban [Eliquis] 10 mg PO BID 7 Days tablet Apixaban [Eliquis] 5 mg PO BID #60 tablet Folic Acid [Folvite] 1 mg PO QDAY #30 tablet metFORMIN [Glucophage] 500 mg PO BID #60 tablet oxyCODONE [Roxicodone TAB] 5 mg PO Q6HR PRN #35 tablet PRN Reason: Pain Thiamine [Vitamin B-1] 100 mg PO QDAY #30 tablet
--- NOTE | 2018-02-20 10:20 | Vascular Lab Report ---
LOWER EXTREMITY VENOUS DUPLEX: REASON FOR EXAM: Deep venous thrombosis. COMMENTS ON THE RIGHT: All veins visualized are freely compressible without evidence of internal echogenicity. Flow is spontaneous and phasic throughout. COMMENTS ON THE LEFT: All veins visualized are freely compressible without evidence of internal echogenicity. Flow is spontaneous and phasic throughout. IMPRESSION: No evidence of acute or chronic deep venous thrombosis in either lower extremity.
== END 2018-02-19 20:05 | disposition home or self-care (01) | DRG 166 ==
LOC: ED 11:54 → 3B-SURG 13:18
PROVIDERS: ADMIT Internal Medicine; ATTEND Internal Medicine
PROC: 06H03DZ Insertion of Intraluminal Device into Inferior Vena Cava, Percutaneous Approach (ICD-10-PCS; principal; 2018-02-14)
PROC: 0QS736Z Reposition Left Upper Femur with Intramedullary Internal Fixation Device, Percutaneous Approach (ICD-10-PCS; 2018-02-15)
DX: I26.99 Other pulmonary embolism without acute cor pulmonale (principal); S72.142A Displaced intertrochanteric fracture of left femur, initial encounter for closed fracture; R65.10 Systemic inflammatory response syndrome (SIRS) of non-infectious origin without acute organ dysfunction; I10 Essential (primary) hypertension; E66.9 Obesity, unspecified; I16.0 Hypertensive urgency; E11.9 Type 2 diabetes mellitus without complications; F17.200 Nicotine dependence, unspecified, uncomplicated; Y93.89 Activity, other specified; Y92.89 Other specified places as the place of occurrence of the external cause; V69.9XXA Occupant (driver) (passenger) of heavy transport vehicle injured in unspecified traffic accident, initial encounter; Z68.33 Body mass index [BMI] 33.0-33.9, adult
CPT/HCPCS: 36415; 37191; 71045; 71275; 74018; 80048; 81001; 82140; 82962; 83036; 85007; 85025; 85027; 85610; 85730; 87040; 93005; 93010; 93970; 94640; 94760; 96361; 96374; 96376; 99406; C1713; C1769; C1880; J0330; J0360; J0690; J1170; J1644; J1650; J1815; J1885; J2250; J2270; J2370; J2543; J2704; J3010; J7030; J7040; Q9967

== ENCOUNTER 2018-06-06 11:57 | Outpatient (CLI) | payer OTHER ==
--- NOTE | 2018-06-06 14:12 | XRay Report ---
LEFT FEMUR RADIOGRAPHS INDICATION: Left hip pain. COMPARISON: 02/15/2018. FINDINGS: AP and lateral views, 5 images again demonstrate left femoral intramedullary andrea/Zickel nail, anchored by a single threaded screw distally. Intertrochanteric fracture lucency and mild sclerosis partially visible. Approximately 2.5-3.5 cm ossific density projecting along the femoral neck superolaterally and possibly in part overlying it noted approximately 1.4 cm from the left acetabular tip and may represent a fractured fragment or possibly heterotopic ossification. Normal left femoral head contour and position within the acetabulum. Bony demineralization. Few extrinsic artifacts. CONCLUSION: Left femoral hardware again noted with an approximately 3 cm ossific density projecting along the femoral neck, as detailed above. Please correlate. Thank you for the opportunity to participate in this patient's care.
== END 2018-06-06 11:58 | disposition home or self-care (01) ==
LOC: XRAY 11:57
PROVIDERS: ATTEND Orthopaedic Surgery
DX: M25.552 Pain in left hip (principal); I10 Essential (primary) hypertension; F17.210 Nicotine dependence, cigarettes, uncomplicated